=== PATIENT | female | born 1940 | race Caucasian/White ===

== ENCOUNTER 2017-12-04 07:35 | Emergency (ER) | payer MEDICARE, MEDICAID ==
--- NOTE | 2017-12-04 07:59 | ER Document Report ---
ED General - General Chief Complaint: Inability to Void Stated Complaint: URINARY PROBLEMS Time Seen by Provider: 12/04/17 07:49 Notes: 77 years old female with a history of COPD, presents with unable to urinate for 4 days with dribbling. And lower abdominal discomfort and swelling. Denies any fever chills, denies any dysuria. Denies any constipation. Denies any other constitutional symptoms. She continuously smoked and cough on and off. TRAVEL OUTSIDE OF THE [place] IN LAST 30 DAYS: No - HPI Onset: Other - 4 days Onset/Duration: Gradual Quality of pain: Throbbing Severity: Moderate Pain Level: 4 Associated symptoms: Productive cough, Shortness of breath. denies: None, Allergy/hay fever, Body/muscle aches, Chest pain, Chills, Nonproductive cough, Diarrhea, Drooling, Earache, Fever, Headache, Hoarseness, Hurts to breath, Leg swelling, Nausea, Vomiting, Rhinnorhea, Sinus pain/drainage, Slow to respond, Sore throat, Sweating, Weakness, Other Exacerbated by: denies: Denies, Supine, Sitting, Standing, Movement, Walking, Coughing, Deep breathing, Food, Other Relieved by: denies: Denies, Supine, Sitting, Standing, Remaining still, Antacids, Food, Other - Related Data Allergies/Adverse Reactions: ciprofloxacin [From Cipro] Allergy (Intermediate, Verified 03/23/16 12:20) Hives ciprofloxacin HCl [From Cipro] Allergy (Intermediate, Verified 03/23/16 12:20) Hives nitroglycerin [From Nitrostat IV] Allergy (Verified 03/23/16 12:20) Penicillins Allergy (Verified 03/23/16 12:20) promethazine HCl [From Phenergan] Allergy (Verified 03/23/16 12:20) Past Medical History - General Information source: Patient - Social History Smoking Status: Current Every Day Smoker Cigarette use (# per day): Yes - 1 pack Chew tobacco use (# tins/day): No Smoking Education Provided: Yes Frequency of alcohol use: Rare Drug Abuse: None Lives with: Family Family History: Reviewed & Not Pertinent - Past Medical History Cardiac Medical History: Reports: Hx Hypercholesterolemia, Hx Hypertension Denies: Hx Heart Attack Pulmonary Medical History: Reports: Hx Asthma, Hx COPD Neurological Medical History: Reports: Hx Cerebrovascular Accident - x3, Hx Seizures - LAST 1 MONTH AGO Endocrine Medical History: Reports: Hx Diabetes Mellitus Type 2 GI Medical History: Denies: Hx Hepatitis, Hx Hiatal Hernia, Hx Ulcer Psychiatric Medical History: Denies: Hx Depression Infectious Medical History: Denies: Hx Hepatitis Past Surgical History: Reports: Hx Cardiac Catheterization - x3, Hx Cholecystectomy, Hx Hysterectomy - Full, Hx Kidney (Renal Surgery) - Bladder lift. Denies: Hx Mastectomy, Hx Open Heart Surgery, Hx Pacemaker - Immunizations Hx Diphtheria, Pertussis, Tetanus Vaccination: Yes Hx Pneumococcal Vaccination: 10/08/08 Review of Systems - Review of Systems Constitutional: denies: No symptoms reported, See HPI, Chills, Diaphoresis, Fever, Malaise, Weakness, Other, Weight gain, Weight loss, Recent illness EENT: denies: No symptoms reported, See HPI, Eye pain, Eye discharge, Blurred vision, Tearing, Double vision, Ear pain, Ear discharge, Nose pain, Nose congestion, Nose discharge, Sinus pressure, Sinus discharge, Throat pain, Difficulty swallowing, Throat swelling, Mouth pain, Mouth swelling, Dental problem, Vertigo, Other Cardiovascular: denies: No symptoms reported, See HPI, Chest pain, Palpitations , Heart racing, Orthopnea, Dyspnea, Syncope, Dizziness, Lightheaded, Edema, Other, Paroxysmal Nocturnal Dysp Respiratory: Cough, Short of breath, Wheezing. denies: No symptoms reported, See HPI, Hurts to breathe, Hemoptysis, Sputum, Stridor, Other Gastrointestinal: denies: No symptoms reported, See HPI, Abdomen distended, Abdominal pain, Diarrhea, Nausea, Vomiting, Constipation, Blood streaked bowels , Poor appetite, Poor fluid intake, Blood in vomit, Black stools, Rectal bleeding, Last bowel movement, Fecal incontinence, Other Genitourinary: See HPI Female Genitourinary: See HPI Skin: denies: No symptoms reported, See HPI, Change in color, Change in hair/ nails, Dryness, Lesions, Lumps, Rash, Other Hematologic/Lymphatic: denies: No symptoms reported, See HPI, Anemia, Blood clots, Easy bleeding, Easy bruising, Enlarged lymph nodes, Swollen glands, Other Physical Exam - Vital signs Vitals: Temp Pulse Resp BP Pulse Ox 97.8 F 81 20 95/72 L 98 12/04/17 07:43 12/04/17 07:43 12/04/17 07:43 12/04/17 07:43 12/04/17 07:43 - Notes Notes: PHYSICAL EXAMINATION: GENERAL: Cachexia of COPD, small made HEAD: Atraumatic, normocephalic. EYES: Pupils equal round and reactive to light, extraocular movements intact, conjunctiva are normal. ENT: Nares patent, oropharynx clear without exudates. Moist mucous membranes. NECK: Normal range of motion, supple without lymphadenopathy LUNGS: Bilaterally expiratory crackles were heard throughout the lung field HEART: Regular rate and rhythm without murmurs ABDOMEN: Lower abdomen over the suprapubic region is distended tense and tender. Otherwise positive bowel sounds Female : deferred Musculoskeletal: Normal range of motion, no pitting or edema. No cyanosis. NEUROLOGICAL: Cranial nerves grossly intact. Normal speech, normal gait. Normal sensory, motor exams PSYCH: Normal mood, normal affect. SKIN: Warm, Dry, normal turgor, no rashes or lesions noted. Course - Re-evaluation Re-evalutation: 12/04/17 09:10 Strep test and flu test came back negative urine was positive for UTI 12/04/17 12:09 CT report was reviewed, offered soapsuds edema patient refused. Subsequently discharged home. - Vital Signs Vital signs: Temp Pulse Resp BP Pulse Ox 97.8 F 81 20 95/72 L 98 12/04/17 07:43 12/04/17 07:43 12/04/17 07:43 12/04/17 07:43 12/04/17 07:43 - Laboratory Result Diagrams: 12/04/17 08:45 12/04/17 08:45 Laboratory results interpreted by me: 12/04/17 12/04/17 08:15 08:45 WBC 10.9 H RBC 3.66 L Hgb 11.5 L Hct 34.8 L Absolute Neutrophils 8.5 H Urine Protein 100 H Urine Blood MODERATE H Ur Leukocyte Esterase LARGE H - Diagnostic Test Radiology reviewed: Reports reviewed Radiology results interpreted by me: 12/04/17 12:08 CT of the abdomen was reported by radiologist as large amount of fecal material Discharge - Discharge Clinical Impression: Constipation by delayed colonic transit Fever Qualifiers: Fever type: unspecified Qualified Code(s): R50.9 - Fever, unspecified Urinary tract infection Qualifiers: Urinary tract infection type: acute cystitis Hematuria presence: without hematuria Qualified Code(s): N30.00 - Acute cystitis without hematuria Condition: Fair Disposition: HOME, SELF-CARE Instructions: Urinary Tract Infection ([facility]), Constipation ([facility]) Prescriptions: Lactulose 20 gm PO BID #240 ml Sulfamethoxazole/Trimethoprim [Bactrim Ds Tablet] 1 each PO BID #20 tablet
[2017-12-04 08:47] LABS: APPEARANCE,URINE TURBID; BILIRUBIN,URINE NEGATIVE (NEGATIVE); COLOR,URINE YELLOW; GLUCOSE, URINE NEGATIVE (NEGATIVE); KETONES,URINE NEGATIVE (NEGATIVE); LEUKOCYTE ESTERASE,URINE LARGE (NEGATIVE); NITRITE,URINE NEGATIVE (NEGATIVE); PROTEIN,URINE 100 mg/dL (NEGATIVE); URINE SPECIFIC GRAVITY 1.015; UROBILINOGEN,URINE NEGATIVE mg/dL (<2.0)
[2017-12-04] MEDS ORDERED: SULFAMETHOXAZOLE/TRIMETHOPRIM 800-160 MG TABLET PO ONE (09:09)
[2017-12-04 09:29] LABS: ABSOLUTE EOSINOPHILS # (AUTO) 0.1 10^3/uL (0.0-0.6); ABSOLUTE LYMPHOCYTES (AUTO) 1.6 10^3/uL (0.5-4.7); ABSOLUTE MONOCYTES (AUTO) 0.7 10^3/uL (0.1-1.4); ABSOLUTE NEUT (AUTO) 8.5 10^3/uL (1.7-8.2); BASOPHILS % (AUTO) 0.4 % (0-2); EOSINOPHILS % (AUTO) 0.8 % (0-6); HEMATOCRIT 34.8 % (36.0-47.0); HEMOGLOBIN 11.5 g/dL (12.0-15.5); LYMPHOCYTES % (AUTO) 14.8 % (13-45); MEAN CORPUSCULAR HEMOGLOBIN 31.4 pg (27.0-33.4); MEAN CORPUSCULAR VOLUME 95 fl (80-97); MONOCYTES % (AUTO) 6.7 % (3-13); PLATELET COUNT 303 10^3/uL (150-450); RED BLOOD COUNT 3.66 10^6/uL (3.72-5.28); SEGMENTED NEUTROPHILS % (AUTO) 77.3 % (42-78); TOTAL CELLS COUNTED % (AUTO) 100 %; WHITE BLOOD COUNT 10.9 10^3/uL (4.0-10.5)
[2017-12-04 09:44] LABS: BLOOD UREA NITROGEN 15 mg/dL (7-20); CALCIUM 9.7 mg/dL (8.4-10.2); GLUCOSE 84 mg/dL (75-110)
[2017-12-04 09:45] LABS: ALANINE AMINOTRANSFERASE 26 U/L (9-52); ALBUMIN 3.8 g/dL (3.5-5.0); ALKALINE PHOSPHATASE 90 U/L (38-126); ANION GAP 11 (5-19); ASPARTATE AMINO TRANSFERASE 16 U/L (14-36); BILIRUBIN,DIRECT 0.3 mg/dL (0.0-0.4); BILIRUBIN,TOTAL 0.3 mg/dL (0.2-1.3); CARBON DIOXIDE 23 mmol/L (22-30); CHLORIDE 105 mmol/L (98-107); POTASSIUM 4.4 mmol/L (3.6-5.0); SODIUM 138.9 mmol/L (137-145); TOTAL PROTEIN 6.6 g/dL (6.3-8.2)
--- NOTE | 2017-12-04 11:15 | RADIOLOGY REPORT (SQ) ---
EXAM DESCRIPTION: CT ABD/PELVIS WITH IV ONLY COMPLETED DATE/TIME: 12/04/2017 10:46 am REASON FOR STUDY: Abdominal mass COMPARISON: CT abdomen pelvis 05/06/2016, 03/07/2012 CT angio chest 04/17/2009 TECHNIQUE: CT scan of the abdomen and pelvis performed using helical scanning technique with dynamic intravenous contrast injection. No oral contrast. Images reviewed with lung, soft tissue, and bone windows. Reconstructed coronal and sagittal MPR images reviewed. Delayed images for evaluation of the urinary system also acquired. All images stored on PACS. All CT scanners at this facility use dose modulation, iterative reconstruction, and/or weight based d osing when appropriate to reduce radiation dose to as low as reasonably achievable (ALARA). [facility]: Dose Right [facility]: CareDose [facility]: Dose Right [facility]: Teradose 4D [facility]: OrangeSoda CONTRAST TYPE AND DOSE: contrast/concentration: Isovue 370.00 mg/ml; Total Contrast Delivered: 42.0 ml; Total Saline Delivered: 39.0 ml RENAL FUNCTION: Creatinine 0.83 RADIATION DOSE: CT Rad equipment meets quality standard of care and radiation dose reduction techniq ues were employed. CTDIvol: 4.8 mGy. DLP: 459 mGy-cm.. LIMITATIONS: No oral contrast FINDINGS: LOWER CHEST: Chronic left lower lobe collapse with rounded atelectasis, similar compared t o 05/06/2015 CT exam LIVER: Very mild intrahepatic biliary ductal prominence similar compared to 2016. Small hemangioma p osterior right lobe liver 1 cm in size axial image 17. No worrisome liver masses. Normal enhancemen t of the portal vein and hepatic veins. SPLEEN: Normal size. No focal lesions. PANCREAS: No masses. No significant calcifications. No adjacent inflammation or peripancreatic fluid collections. Pancreatic duct not dilated. Small periampullary duodenum diverticulum GALLBLADDER: Surgically absent ADRENAL GLANDS: No significant masses or asymmetry. RIGHT KIDNEY AND URETER: No solid masses. 1.6 cm right lower pole renal cortical cyst. No significa nt calcifications. No hydronephrosis or hydroureter. LEFT KIDNEY AND URETER: No solid masses. 3 cm left upper pole renal cortical cyst. No significant c alcifications. No hydronephrosis or hydroureter. AORTA AND VESSELS: No abdominal aortic aneurysm. Very heavy visceral artery calcification along the proximal celiac artery, SMA, and bilateral renal arteries. Very heavy atherosclerotic iliac bifurcat ion calcification with at least moderate stenosis of the proximal common iliac arteries bilaterally RETROPERITONEUM: No retroperitoneal adenopathy, hemorrhage or masses. BOWEL AND PERITONEAL CAVITY: Large amount of stool throughout the colon particularly the right colon. No CT evidence of bowel obstruction. APPENDIX: Surgically absent PELVIS: Estrada catheter drains the bladder. Post hysterectomy. No free pelvic fluid. No adenopathy ABDOMINAL WALL: No masses. No hernias. BONES: Chronic appearing vertebra plana deformity T12 without bone cement, L1 with bone cement. OTHER: No other significant finding. IMPRESSION: Huge amount of stool throughout the colon TECHNICAL DOCUMENTATION: JOB ID: [id number] Quality ID # [id number]: Final reports with documentation of one or more dose reduction techniques (e.g., Au tomated exposure control, adjustment of the mA and/or kV according to patient size, use of iterative reconstruction technique) 2010 [employer]- All Rights Reserved Reading location - IP/workstation name: [email or web address]
[2017-12-04 12:29] VITALS: BP 111/54
== END 2017-12-04 12:29 | disposition home or self-care (01) ==
LOC: ER 07:35
DX: K59.01 Slow transit constipation (principal); N30.00 Acute cystitis without hematuria; R50.9 Fever, unspecified; J44.9 Chronic obstructive pulmonary disease, unspecified; F17.210 Nicotine dependence, cigarettes, uncomplicated; R05 Cough; I10 Essential (primary) hypertension; E11.9 Type 2 diabetes mellitus without complications
CPT/HCPCS: 99284; 51702; 36415; 85025; 80053; 81001; 74177; A9270

== ENCOUNTER 2018-05-11 19:50 | Inpatient (IN) | payer MEDICARE, MEDICAID ==
--- NOTE | 2018-05-11 19:59 | ER Document Report ---
ED Respiratory Problem - General Mode of Arrival: Ambulatory Information source: Patient TRAVEL OUTSIDE OF THE [place] IN LAST 30 DAYS: No <SARAH SINGH - Last Filed: 05/11/18 19:59> <WILLIAM TREVINO - Last Filed: 05/12/18 03:00> - General Stated Complaint: DIFFICULTY BREATHING Notes: Patient is a 78 year old female that presents to the emergency department today with complaints of respiratory distress. EMS reports when they arrived on scene the patient had an oxygen saturation at 88% on her chronic 2L of home oxygen. EMS reports the patient was "breathing very shallow as if she could not get a deep breath". Patient states she used 5 nebulizers today, which is the same number that she uses every day. Patient states she has had increased shortness of breath for the last four days. Patient complaints of a subjective fever but denies any recent antibiotic usage. (SARAH SINGH) - Related Data Allergies/Adverse Reactions: ciprofloxacin [From Cipro] Allergy (Intermediate, Verified 05/11/18 20:50) Hives ciprofloxacin HCl [From Cipro] Allergy (Intermediate, Verified 05/11/18 20:50) Hives nitroglycerin [From Nitrostat IV] Allergy (Verified 05/11/18 20:50) Penicillins Allergy (Verified 05/11/18 20:50) promethazine HCl [From Phenergan] Allergy (Verified 05/11/18 20:50) Past Medical History - General Information source: Patient - Social History Smoking Status: Never Smoker Cigarette use (# per day): No Frequency of alcohol use: None Drug Abuse: None Lives with: Family Family History: Reviewed & Not Pertinent - Past Medical History Cardiac Medical History: Reports: Hx Hypercholesterolemia, Hx Hypertension Pulmonary Medical History: Reports: Hx Asthma, Hx COPD Neurological Medical History: Reports: Hx Cerebrovascular Accident - x3, Hx Seizures - LAST 1 MONTH AGO Endocrine Medical History: Reports: Hx Diabetes Mellitus Type 2 Past Surgical History: Reports: Hx Cardiac Catheterization - x3, Hx Cholecystectomy, Hx Hysterectomy - Full, Hx Kidney (Renal Surgery) - Bladder lift - Immunizations Hx Diphtheria, Pertussis, Tetanus Vaccination: Yes Hx Pneumococcal Vaccination: 10/08/08 <SARAH SINGH - Last Filed: 05/11/18 19:59> Review of Systems - Review of Systems Constitutional: See HPI, Fever, Other - denies re EENT: No symptoms reported Cardiovascular: No symptoms reported Respiratory: See HPI, Short of breath Gastrointestinal: No symptoms reported Genitourinary: No symptoms reported Female Genitourinary: No symptoms reported Musculoskeletal: No symptoms reported Skin: No symptoms reported Hematologic/Lymphatic: No symptoms reported Neurological/Psychological: No symptoms reported -: Yes All other systems reviewed and negative <SARAH SINGH - Last Filed: 05/11/18 19:59> Physical Exam <SARAH SINGH - Last Filed: 05/11/18 19:59> <WILLIAM TREVINO - Last Filed: 05/12/18 03:00> - Vital signs Vitals: Temp Resp BP Pulse Ox 97.8 F 20 129/81 H 97 05/11/18 19:54 05/11/18 19:54 05/11/18 19:54 05/11/18 19:54 - Notes Notes: Physical Exam: General: Alert, cachectic. HEENT: Normocephalic. Atraumatic. PERRL. Extraocular movements intact. Oropharynx clear. Neck: Supple. Non-tender. Respiratory: Tachypneic. Clear and equal breath sounds bilaterally. Cardiovascular: Tachycardic, regular rhythm. Abdominal: Normal Inspection. Non-tender. No distension. Normal Bowel Sounds. Back: Non-tender. No deformity or step off. Extremities: Moves all four extremities. Upper extremities: Normal inspection. Normal ROM. Lower extremities: Normal inspection. No edema. Normal ROM. Neurological: Normal cognition. AAOx4. Normal speech. Psychological: Normal affect. Normal Mood. Skin: Warm. Dry. Noriega color. (SARAH SINGH) Course - Laboratory Result Diagrams: 05/11/18 19:17 05/11/18 19:17 <SARAH SINGH - Last Filed: 05/11/18 19:59> - Laboratory Result Diagrams: 05/11/18 19:17 05/11/18 19:17 <WILLIAM TREVINO - Last Filed: 05/12/18 03:00> - Re-evaluation Re-evalutation: Patient is a 70-year-old female with history of COPD who comes in with difficulty breathing. Patient also has chronic collapse of her left lower lobe of her lung. Patient was still in respiratory distress despite multiple nebulizer treatments, Solu-Medrol, and magnesium from EMS. BiPAP was initiated which patient tolerated and greatly improved her work of breathing. She is usually on 2.5 L nasal cannula at home. At baseline she uses 4-5 nebulizers per day. Patient began having worsening symptoms on Sunday and has progressed since then. Given the severity of presentation and that she has not been able to manage as well at home, patient will be admitted for further evaluation and management of this current COPD exacerbation. She is agreeable to this plan. Discussed with the hospitalist service will accept for admission. (WILLIAM TREVINO) - Vital Signs Vital signs: Temp Pulse Resp BP Pulse Ox 98.0 F 92 30 H 119/70 99 05/12/18 00:32 05/12/18 02:00 05/12/18 01:44 05/12/18 00:32 05/12/18 01:44 - Laboratory Laboratory results interpreted by me: 05/11/18 05/11/18 05/11/18 19:17 19:17 20:12 RDW 14.5 H Monocytes % 17.7 H VBG HCO3 19.7 L Sodium 133.7 L Chloride 97 L Carbon Dioxide 21 L Total Protein 8.4 H Critical Care Note - Critical Care Note Total time excluding time spent on procedures (mins): 45 - Evaluation and management of respiratory distress, multiple re-evaluations, initiation of BiPAP , coordination of admission, counseling of patient <WILLIAM TREVINO - Last Filed: 05/12/18 03:00> Discharge <SARAH SINGH - Last Filed: 05/11/18 19:59> - Discharge Admitting Provider: [place] [facility] Unit Admitted: [facility] <WILLIAM TREVINO - Last Filed: 05/12/18 03:00> - Discharge Clinical Impression: COPD exacerbation, Respiratory distress, Acute on chronic respiratory failure with hypoxemia Condition: Stable Disposition: ADMITTED INPATIENT Scribe Attestation: 05/12/18 02:59 I personally performed the services described in the documentation, reviewed and edited the documentation which was dictated to the scribe in my presence, and it accurately records my words and actions. (WILLIAM TREVINO) Scribe Documentation - Scribe Written by Scribe:: Gianni Holliday, 2043 05/11/2018 acting as scribe for :: Marquis <SARAH SINGH - Last Filed: 05/11/18 19:59>
[2018-05-11 20:12] LABS: ABSOLUTE BASOPHILS # (AUTO) 0.1 10^3/uL (0.0-0.2); ABSOLUTE LYMPHOCYTES (AUTO) 0.9 10^3/uL (0.5-4.7); ABSOLUTE MONOCYTES (AUTO) 0.8 10^3/uL (0.1-1.4); ABSOLUTE NEUT (AUTO) 2.9 10^3/uL (1.7-8.2); BASOPHILS % (AUTO) 1.1 % (0-2); EOSINOPHILS % (AUTO) 0.4 % (0-6); HEMATOCRIT 36.4 % (36.0-47.0); HEMOGLOBIN 12.1 g/dL (12.0-15.5); LYMPHOCYTES % (AUTO) 19.5 % (13-45); MEAN CORPUSCULAR HEMOGLOBIN 31.3 pg (27.0-33.4); MEAN CORPUSCULAR HGB CONC 33.3 g/dL (32.0-36.0); MEAN CORPUSCULAR VOLUME 94 fl (80-97); MONOCYTES % (AUTO) 17.7 % (3-13); PLATELET COUNT 256 10^3/uL (150-450); RED BLOOD COUNT 3.87 10^6/uL (3.72-5.28); RED CELL DISTRIBUTION WIDTH 14.5 % (11.5-14.0); SEGMENTED NEUTROPHILS % (AUTO) 61.3 % (42-78); TOTAL CELLS COUNTED % (AUTO) 100 %; WHITE BLOOD COUNT 4.7 10^3/uL (4.0-10.5)
--- NOTE | 2018-05-11 20:13 | RADIOLOGY REPORT (SQ) ---
EXAM DESCRIPTION: CHEST SINGLE VIEW COMPLETED DATE/TIME: 05/11/2018 8:05 pm REASON FOR STUDY: SOB COMPARISON: CT chest 10/15/2015 CT abdomen pelvis 12/04/2017 EXAM PARAMETERS: NUMBER OF VIEWS: One view. TECHNIQUE: Single frontal radiographic view of the chest acquired. RADIATION DOSE: NA LIMITATIONS: None. FINDINGS: LUNGS AND PLEURA: Chronic appearing collapse left lower lobe. CT chest with IV contrast r ecommended for follow-up, to exclude endobronchial mass or left hilar mass. Remainder of the lungs are grossly clear. No pleural effusion or pneumothorax. MEDIASTINUM AND HILAR STRUCTURES: No masses. Contour normal. HEART AND VASCULAR STRUCTURES: No cardiomegaly BONES: Lower thoracic kyphoplasty HARDWARE: None in the chest. OTHER: No other significant finding. IMPRESSION: Chronic appearing left lower lobe collapse. CT chest with IV contrast recommended to ev aluate for left hilar or endobronchial mass TECHNICAL DOCUMENTATION: JOB ID: [id number] [employer]- All Rights Reserved Reading location - IP/workstation name: [email or web address]
[2018-05-11 20:25] LABS: INTERNATIONAL RATION (INR) 0.87; PROTHROMBIN TIME 12.3 SEC (11.4-15.4)
[2018-05-11 20:26] LABS: ALANINE AMINOTRANSFERASE 18 U/L (9-52); ALBUMIN 4.5 g/dL (3.5-5.0); ALKALINE PHOSPHATASE 121 U/L (38-126); ANION GAP 16 (5-19); ASPARTATE AMINO TRANSFERASE 36 U/L (14-36); BILIRUBIN,DIRECT 0.4 mg/dL (0.0-0.4); BILIRUBIN,TOTAL 0.4 mg/dL (0.2-1.3); BLOOD UREA NITROGEN 13 mg/dL (7-20); CALCIUM 9.4 mg/dL (8.4-10.2); CARBON DIOXIDE 21 mmol/L (22-30); CHLORIDE 97 mmol/L (98-107); GLUCOSE 87 mg/dL (75-110); POTASSIUM 4.5 mmol/L (3.6-5.0); SODIUM 133.7 mmol/L (137-145); TOTAL PROTEIN 8.4 g/dL (6.3-8.2)
[2018-05-11 20:36] LABS: VENOUS BLOOD BASE EXCESS -5.7 mmol/L; VENOUS BLOOD HCO3 19.7 mmol/L (20-32); VENOUS BLOOD PCO2 38.4 mmHg (35-63); VENOUS BLOOD PH 7.33 (7.30-7.42)
[2018-05-11] MEDS ORDERED: AZITHROMYCIN INJ 500 MG VIAL IV ONE (21:04)
[2018-05-11] MEDS ORDERED: LEVALBUTEROL HCL NEB 0.63 MG/3 ML AMPUL NEB PRN (22:21)
[2018-05-11] MEDS ORDERED: ONDANSETRON 4 MG TAB.RAPDIS PO PRN (22:21)
[2018-05-11 23:36] LABS: INTERNATIONAL RATION (INR) 0.89; PROTHROMBIN TIME 12.5 SEC (11.4-15.4)
[2018-05-11] MEDS ORDERED: METHYLPREDNISOLONE INJ 125 MG/2 ML SDV IV SCH (23:45)
[2018-05-11] MEDS ORDERED: INSULIN LISPRO 100 UNIT/ML 3 ML VIAL SUBCUT PRN (23:45)
[2018-05-11] MEDS ORDERED: GLUCAGON,HUMAN RECOMB 1 MG INJ IM PRN (23:45)
[2018-05-11] MEDS ORDERED: DEXTROSE 40% GEL 15 GM TUBE PO PRN ×2 (23:45)
[2018-05-11] MEDS ORDERED: DEXTROSE 50%-WATER 25 GM/50 ML DISP.SYRIN IV PRN ×2 (23:45)
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
[2018-05-12 00:03] LABS: CREATINE KINASE MB 0.88 ng/mL (<4.55)
[2018-05-12 00:04] LABS: TROPONIN I < 0.012 ng/mL
[2018-05-12] MEDS ORDERED: HYDROCODONE/ACETAMINOPHEN 7.5-325 MG TABLET PO PRN (00:11)
[2018-05-12] MEDS ORDERED: PHENYTOIN SODIUM EXTENDED 100 MG CAPSULE PO ONE (00:30)
[2018-05-12] MEDS ORDERED: TOPIRAMATE 25 MG TABLET PO ONE (00:30)
[2018-05-12] MEDS: NORMAL SALINE 1000 ML 1,000 ML IV PRN ×3 (01:27→21:55)
[2018-05-12] MEDS: IPRATROPIUM/ALBUTEROL 0.5-2.5 MG/3 ML AMPUL NEB SCH ×4 (01:38→20:19)
--- NOTE | 2018-05-12 03:47 | RADIOLOGY REPORT (SQ) ---
EXAM DESCRIPTION: CT CHEST WITH IV CONTRAST COMPLETED DATE/TME: 05/12/2018 00:00 CLINICAL HISTORY: 78 years Female, left lung lesion eval Comparison: 1.8.16 Technique: IV contrast. Coronal and sagittal reformat. This exam was performed according to our departmental dose-optimization program, which includes automated exposure control, adjustment of the mA and/or kV according to patient size and/or use of iterative reconstruction technique. [facility]: Dose Right [facility]: CareDose [facility]: Dose Right [facility]: Teradose 4D [facility]: [employer] LIMITATIONS: None Findings: Emphysematous hyperinflation large colonic stool retention of the visualized transverse colon. Atherosclerosis. Likely benign 3.3 cm exophytic left upper renal cyst. Moderate coronary artery calcification, moderate consolidative collection/collapse measuring 4.8 x 4.4 cm of the left lower lobe, moderate L1 compression deformity with vertebroplasty, moderate-severe T12 and T8 compression deformity, and mild T10 compression deformity without significant interval change compared to prior exam, October 15, 2015. Moderate leftward mediastinal shift. Inferior neck, axillae, mediastinum, airway, lymphatics, heart, vasculature, upper abdomen, and musculoskeleton appear otherwise unremarkable. Impression: Chronic left lower lobar consolidative collection/collapse without suspicious interval change compared with prior CT from October 2015. Differential etiologies include infectious, inflammatory, and neoplastic processes. Severe emphysematous hyperinflation, right more than left.
[2018-05-12 04:59] LABS: HEMATOCRIT 35.6 % (36.0-47.0); MEAN CORPUSCULAR HEMOGLOBIN 31.5 pg (27.0-33.4); MEAN CORPUSCULAR HGB CONC 33.6 g/dL (32.0-36.0); MEAN CORPUSCULAR VOLUME 94 fl (80-97); PLATELET COUNT 203 10^3/uL (150-450); RED BLOOD COUNT 3.79 10^6/uL (3.72-5.28); RED CELL DISTRIBUTION WIDTH 14.2 % (11.5-14.0); WHITE BLOOD COUNT 3.1 10^3/uL (4.0-10.5)
[2018-05-12] MEDS: LANSOPRAZOLE 30 MG TAB.RAP.DR PO SCH ×2 (05:08→17:56)
[2018-05-12 05:31] LABS: ANION GAP 15 (5-19); BLOOD UREA NITROGEN 15 mg/dL (7-20); CALCIUM 8.9 mg/dL (8.4-10.2); CARBON DIOXIDE 20 mmol/L (22-30); CHLORIDE 99 mmol/L (98-107); CREATINE KINASE 111 U/L (30-135); GLUCOSE 109 mg/dL (75-110); POTASSIUM 4.4 mmol/L (3.6-5.0); SODIUM 134.2 mmol/L (137-145)
[2018-05-12 05:36] LABS: CREATINE KINASE MB 1.07 ng/mL (<4.55)
[2018-05-12 05:39] LABS: TROPONIN I < 0.012 ng/mL
[2018-05-12 05:44] LABS: APPEARANCE,URINE SLIGHTLY-CLOUDY; BILIRUBIN,URINE NEGATIVE (NEGATIVE); COLOR,URINE YELLOW; GLUCOSE, URINE NEGATIVE (NEGATIVE); KETONES,URINE 20 mg/dL (NEGATIVE); LEUKOCYTE ESTERASE,URINE NEGATIVE (NEGATIVE); NITRITE,URINE NEGATIVE (NEGATIVE); PROTEIN,URINE NEGATIVE (NEGATIVE); URINE SPECIFIC GRAVITY 1.033; UROBILINOGEN,URINE NEGATIVE mg/dL (<2.0)
--- NOTE | 2018-05-12 09:57 | EKG REPORT ---
SEVERITY:- ABNORMAL ECG - SINUS TACHYCARDIA MULTIPLE VENTRICULAR PREMATURE COMPLEXES INCOMPLETE RIGHT BUNDLE BRANCH BLOCK : Confirmed by: Samuel Montalvo 12-May-2018 09:56:56
[2018-05-12] MEDS: ROPINIROLE HCL 1 MG TABLET PO SCH ×2 (10:48→17:56)
[2018-05-12] MEDS: DOXYCYCLINE HYCLATE 100 MG TABLET PO SCH ×2 (10:48→21:40)
[2018-05-12] MEDS: CITALOPRAM HYDROBROMIDE 20 MG TABLET PO SCH (10:49)
[2018-05-12] MEDS: TOPIRAMATE 25 MG TABLET PO SCH ×2 (10:49→21:40)
[2018-05-12] MEDS: ASPIRIN 81 MG TABLET, CHEWABLE PO SCH (10:49)
[2018-05-12] MEDS: DOCUSATE SODIUM 100 MG CAPSULE PO SCH (10:49)
[2018-05-12 11:03] LABS: CREATINE KINASE MB 1.49 ng/mL (<4.55)
[2018-05-12 11:06] LABS: TROPONIN I < 0.012 ng/mL
--- NOTE | 2018-05-12 11:11 | PDOC PROGRESS REPORT ---
Subjective Progress Note for:: 05/12/18 Subjective:: patient is feeling better today she is tolerating diet and back on home O2 2 liters/min Reason For Visit: COPD WITH EXACERBATION,LEFT LUNG LESION,ABNORMAL Physical Exam Vital Signs: Temp Pulse Resp BP Pulse Ox 98.5 F 94 18 118/49 L 100 05/12/18 07:40 05/12/18 08:35 05/12/18 08:35 05/12/18 07:40 05/12/18 08:35 Intake & Output 05/11/18 05/12/18 05/13/18 06:59 06:59 06:59 Intake Total 0 Output Total 0 Balance 0 Weight 83 lb 12.41 oz General appearance: PRESENT: cooperative, thin. ABSENT: no acute distress Head exam: PRESENT: atraumatic, normocephalic Eye exam: PRESENT: EOMI, PERRLA. ABSENT: conjunctival injection Ear exam: ABSENT: bleeding, drainage Neck exam: ABSENT: JVD, meningismus, tenderness, thyromegaly Respiratory exam: PRESENT: wheezes. ABSENT: accessory muscle use Cardiovascular exam: PRESENT: RRR. ABSENT: diastolic murmur, rubs, systolic murmur Pulses: PRESENT: normal dorsalis pedis pul Vascular exam: PRESENT: normal capillary refill GI/Abdominal exam: PRESENT: normal bowel sounds, soft. ABSENT: distended, guarding, mass, organolmegaly, rebound, tenderness Neurological exam: PRESENT: alert, awake, oriented to person, oriented to place , oriented to time, oriented to situation, CN II-XII grossly intact. ABSENT: motor sensory deficit Results Laboratory Results: 05/12/18 04:34 05/12/18 04:34 05/11/18 05/12/18 05/12/18 23:08 04:34 04:34 WBC 3.1 L RBC 3.79 Hgb 12.0 Hct 35.6 L MCV 94 MCH 31.5 MCHC 33.6 RDW 14.2 H Plt Count 203 Sodium 134.2 L Potassium 4.4 Chloride 99 Carbon Dioxide 20 L Anion Gap 15 BUN 15 Creatinine 0.65 Est GFR ( Amer) > 60 Est GFR (Non-Af Amer) > 60 Glucose 109 Calcium 8.9 TSH 1.64 Urine Color Urine Appearance Urine pH Ur Specific [place] Urine Protein Urine Glucose (UA) Urine Ketones Urine Blood Urine Nitrite Ur Leukocyte Esterase Urine WBC (Auto) Urine RBC (Auto) 05/12/18 05:15 WBC RBC Hgb Hct MCV MCH MCHC RDW Plt Count Sodium Potassium Chloride Carbon Dioxide Anion Gap BUN Creatinine Est GFR ( Amer) Est GFR (Non-Af Amer) Glucose Calcium TSH Urine Color YELLOW Urine Appearance SLIGHTLY-CLOUDY Urine pH 5.0 Ur Specific [place] 1.033 Urine Protein NEGATIVE Urine Glucose (UA) NEGATIVE Urine Ketones 20 H Urine Blood SMALL H Urine Nitrite NEGATIVE Ur Leukocyte Esterase NEGATIVE Urine WBC (Auto) 2 Urine RBC (Auto) 6 05/11/18 05/11/18 05/12/18 23:08 23:08 04:34 Creatine Kinase 64 111 CK-MB (CK-2) 0.88 Troponin I < 0.012 05/12/18 04:34 Creatine Kinase CK-MB (CK-2) 1.07 Troponin I < 0.012 Impressions: Chest X-Ray 05/11/18 19:54 IMPRESSION: Chronic appearing left lower lobe collapse. CT chest with IV contrast recommended to evaluate for left hilar or endobronchial mass Assessment & Plan - Diagnosis (1) COPD exacerbation Is this a current diagnosis for this admission?: Yes Plan: she is off BiPAP and back to nasal cannula oxygen We will switch to p.o. prednisone Continue bronchodilator management (2) Acute on chronic respiratory failure with hypoxemia Is this a current diagnosis for this admission?: Yes Plan: Due to COPD exacerbation Currently back to her baseline of 2 L of oxygen via nasal cannula (3) Abnormal weight loss Is this a current diagnosis for this admission?: Yes Plan: CT of the chest did not show any progression of her chronic lung findings We will give nutrition supplements (4) Chronic constipation Is this a current diagnosis for this admission?: Yes (5) Chronic pain Is this a current diagnosis for this admission?: Yes (6) GERD (gastroesophageal reflux disease) Is this a current diagnosis for this admission?: Yes Plan: Continue PPI treatment (7) Hyperlipidemia Is this a current diagnosis for this admission?: Yes (8) Lesion of left lung Is this a current diagnosis for this admission?: Yes Plan: CT scan did not show any progression (9) Seizure disorder Is this a current diagnosis for this admission?: Yes Plan: Continue antiepileptic medication (10) Type 2 diabetes mellitus Is this a current diagnosis for this admission?: Yes Plan: Holding p.o. medications and continue insulin coverage (11) CAD (coronary artery disease) Is this a current diagnosis for this admission?: Yes Plan: Continue aspirin
[2018-05-12] MEDS ORDERED: PHENYTOIN SODIUM EXTENDED 100 MG CAPSULE PO SCH (22:00)
[2018-05-13] MEDS ORDERED: ONDANSETRON HCL 8 MG TABLET PO PRN
[2018-05-13] MEDS ORDERED: ONDANSETRON HCL INJ/PF 4 MG/2 ML SDV IV PRN
[2018-05-13] MEDS: IPRATROPIUM/ALBUTEROL 0.5-2.5 MG/3 ML AMPUL NEB SCH ×3 (01:37→14:05)
[2018-05-13 05:19] LABS: HEMATOCRIT 32.5 % (36.0-47.0); HEMOGLOBIN 11.1 g/dL (12.0-15.5); MEAN CORPUSCULAR HEMOGLOBIN 31.8 pg (27.0-33.4); MEAN CORPUSCULAR HGB CONC 34.2 g/dL (32.0-36.0); MEAN CORPUSCULAR VOLUME 93 fl (80-97); PLATELET COUNT 167 10^3/uL (150-450); RED BLOOD COUNT 3.49 10^6/uL (3.72-5.28); RED CELL DISTRIBUTION WIDTH 14.2 % (11.5-14.0); WHITE BLOOD COUNT 4.6 10^3/uL (4.0-10.5)
[2018-05-13 05:54] LABS: ANION GAP 10 (5-19); BLOOD UREA NITROGEN 12 mg/dL (7-20); CALCIUM 8.1 mg/dL (8.4-10.2); CARBON DIOXIDE 21 mmol/L (22-30); CHLORIDE 106 mmol/L (98-107); GLUCOSE 86 mg/dL (75-110); POTASSIUM 4.2 mmol/L (3.6-5.0); SODIUM 136.6 mmol/L (137-145)
[2018-05-13] MEDS: LANSOPRAZOLE 30 MG TAB.RAP.DR PO SCH (05:59)
[2018-05-13] MEDS: NORMAL SALINE 1000 ML 1,000 ML IV PRN (08:15)
[2018-05-13] MEDS ORDERED: PREDNISONE 20 MG TABLET PO SCH (10:00)
[2018-05-13] MEDS: CITALOPRAM HYDROBROMIDE 20 MG TABLET PO SCH (11:00)
[2018-05-13] MEDS: DOCUSATE SODIUM 100 MG CAPSULE PO SCH (11:01)
[2018-05-13] MEDS: ASPIRIN 81 MG TABLET, CHEWABLE PO SCH (11:01)
[2018-05-13] MEDS: DOXYCYCLINE HYCLATE 100 MG TABLET PO SCH (11:01)
[2018-05-13] MEDS: ROPINIROLE HCL 1 MG TABLET PO SCH (11:01)
[2018-05-13] MEDS: TOPIRAMATE 25 MG TABLET PO SCH (11:01)
--- NOTE | 2018-05-13 11:32 | PDOC DISCHARGE SUMMARY ---
General - Admit/Disc Date/PCP Admission Date/Primary Care Provider: 05/11/18 22:04 Discharge Date: 05/13/18 - Discharge Diagnosis (1) COPD exacerbation Is this a current diagnosis for this admission?: Yes (2) Acute on chronic respiratory failure with hypoxemia Is this a current diagnosis for this admission?: Yes (3) Abnormal weight loss Is this a current diagnosis for this admission?: Yes (4) Chronic constipation Is this a current diagnosis for this admission?: Yes (5) Chronic pain Is this a current diagnosis for this admission?: Yes (6) GERD (gastroesophageal reflux disease) Is this a current diagnosis for this admission?: Yes (7) Hyperlipidemia Is this a current diagnosis for this admission?: Yes (8) Lesion of left lung Is this a current diagnosis for this admission?: Yes (9) Seizure disorder Is this a current diagnosis for this admission?: Yes (10) Type 2 diabetes mellitus Is this a current diagnosis for this admission?: Yes (11) CAD (coronary artery disease) Is this a current diagnosis for this admission?: Yes - Additional Information Resuscitation Status: Full Code Discharge Diet: Cardiac, Diabetic Discharge Activity: Activity As Tolerated Prescriptions: Doxycycline Hyclate [Vibramycin 100 mg Tablet] 100 mg PO Q12 5 Days #10 tablet Ipratropium/Albuterol Sulfate [Duoneb 3 ml Ampul] 3 ml NEB Q6 PRN #30 vial.neb PRN Reason: Shortness Of Breath Prednisone 10 mg PO DAILY #30 tablet Home Medications: Albuterol Sulfate [Albuterol Sulfate 2.5mg/3 mL] 2.5 mg IH 5XD 05/12/18 Albuterol Sulfate [Ventolin HFA MDI 18 GM] 1 puff IH Q6HP PRN 05/12/18 Amitriptyline HCl [Elavil 100 mg Tablet] 200 mg PO QHS 05/12/18 Aspirin [Ecotrin 81 mg EC Tablet] 81 mg PO [id number] 05/12/18 Citalopram Hydrobromide [Celexa 20 mg Tablet] 40 mg PO DAILY 05/12/18 Diphenoxylate HCl/Atropine [Lomotil 2.5-0.025 mg Tablet] 2 tab PO DAILYP PRN 02/22 Docusate Sodium [Colace 100 mg Capsule] 100 mg PO DAILY 05/12/18 Fluticasone/Salmeterol [Advair 500-50 Diskus 14 Dose/Diskus] 1 puff IH Q12 05/12 Hydrocodone/Acetaminophen [Hydrocodone-Acetamin 7.5-325] 1 tab PO Q6HP PRN 05/12 Lovastatin 40 mg PO DAILY 05/12/18 Metformin HCl [Glucophage 500 mg Tablet] 500 mg PO BIDBS 05/12/18 Omeprazole 40 mg PO BID 05/12/18 Ondansetron [Zofran Odt] 8 mg PO Q8HP PRN 05/12/18 Phenytoin Sodium Extended [Dilantin 100 mg Capsule.er] 200 mg PO QHS 05/12/18 Ropinirole HCl [Requip] 0.5 mg PO BID 05/12/18 Tiotropium [place] [Spiriva Handihaler 5 Cap/Kit (18 Mcg/Cap)] 1 puff IH DAILY 05/12/18 Topiramate [Topamax] 50 mg PO Q12 05/12/18 Doxycycline Hyclate [Vibramycin 100 mg Tablet] 100 mg PO Q12 5 Days #10 tablet 05/13/18 Ipratropium/Albuterol Sulfate [Duoneb 3 ml Ampul] 3 ml NEB Q6 PRN #30 vial.neb 05/13/18 Prednisone 10 mg PO DAILY #30 tablet 05/13/18 History of Present Illness History of Present Illness: DANE HERNÁNDEZ is a 78 year old female With history of coronary artery disease and COPD who presents to the emergency room due to shortness of breath and desaturation. She has chronic respiratory failure with hypoxemia and she was on chronic 2 L of oxygen at home. She also has chronic left lower lung collapse which seems unchanged from prior CT in 2016 Hospital Course Hospital Course: Patient was initially started on BiPAP which later switched to nasal cannula and weaned down to 2 L as her home oxygen was. She was started on IV Solu- Medrol then transitioned to p.o. prednisone she tolerated that very well. She continued to receive albuterol and DuoNeb with great response. She felt that she is at her baseline and she wanted to go home. Patient is stable for discharge and we will give her prescription for tapering dose of steroids. She carries a long-term poor prognosis. She still smokes and we counseled her extensively regarding that. Physical Exam Vital Signs: Temp Pulse Resp BP Pulse Ox 99.2 F 95 18 112/52 L 98 05/13/18 07:25 05/13/18 08:23 05/13/18 08:23 05/13/18 07:25 05/13/18 08:23 Intake & Output 05/12/18 05/13/18 05/14/18 06:59 06:59 06:59 Intake Total 0 3172 1000 Output Total 0 Balance 0 3172 1000 Weight 83 lb 12.41 oz 144 lb 9.972 oz General appearance: PRESENT: cooperative, thin. ABSENT: no acute distress Head exam: PRESENT: atraumatic, normocephalic Eye exam: PRESENT: EOMI, PERRLA. ABSENT: conjunctival injection, nystagmus Ear exam: ABSENT: bleeding, drainage Respiratory exam: PRESENT: wheezes. ABSENT: accessory muscle use Cardiovascular exam: PRESENT: RRR. ABSENT: diastolic murmur, rubs, systolic murmur GI/Abdominal exam: PRESENT: normal bowel sounds, soft. ABSENT: distended, guarding, mass, organolmegaly, rebound, tenderness Neurological exam: PRESENT: alert, awake, oriented to person, oriented to place , oriented to time, oriented to situation, CN II-XII grossly intact. ABSENT: motor sensory deficit Results Laboratory Results: 05/13/18 04:22 05/13/18 04:22 05/13/18 05/13/18 04:22 04:22 WBC 4.6 RBC 3.49 L Hgb 11.1 L Hct 32.5 L MCV 93 MCH 31.8 MCHC 34.2 RDW 14.2 H Plt Count 167 Sodium 136.6 L Potassium 4.2 Chloride 106 Carbon Dioxide 21 L Anion Gap 10 BUN 12 Creatinine 0.61 Est GFR ( Amer) > 60 Est GFR (Non-Af Amer) > 60 Glucose 86 Calcium 8.1 L 05/11/18 05/11/18 05/12/18 23:08 23:08 04:34 Creatine Kinase 64 111 CK-MB (CK-2) 0.88 Troponin I < 0.012 05/12/18 05/12/18 05/12/18 04:34 10:23 10:23 Creatine Kinase 113 CK-MB (CK-2) 1.07 1.49 Troponin I < 0.012 < 0.012 Impressions: Chest X-Ray 05/11/18 19:54 IMPRESSION: Chronic appearing left lower lobe collapse. CT chest with IV contrast recommended to evaluate for left hilar or endobronchial mass Qualifiers - * PATIENT BEING DISCHARGED WITH ANY OF THE FOLLOWING DIAGNOSIS: No
[2018-05-13 11:48] VITALS: BP 123/59
== END 2018-05-13 15:30 | disposition home or self-care (01) | DRG 190 ==
LOC: ER 19:50 → EH 22:04 → 3N 05-12 00:32
PROVIDERS: ADMIT Internal Medicine; ATTEND Internal Medicine
PROC: 5A09457 Assistance with Respiratory Ventilation, 24-96 Consecutive Hours, Continuous Positive Airway Pressure (ICD-10-PCS; principal; 2018-05-11)
PROC: 3E0F73Z Introduction of Anti-inflammatory into Respiratory Tract, Via Natural or Artificial Opening (ICD-10-PCS; 2018-05-11)
DX: J44.1 Chronic obstructive pulmonary disease with (acute) exacerbation (principal); J96.21 Acute and chronic respiratory failure with hypoxia; Z68.1 Body mass index [BMI] 19.9 or less, adult; J96.11 Chronic respiratory failure with hypoxia; R91.1 Solitary pulmonary nodule; R63.4 Abnormal weight loss; K59.09 Other constipation; G89.29 Other chronic pain; K21.9 Gastro-esophageal reflux disease without esophagitis; E78.00 Pure hypercholesterolemia, unspecified; G40.909 Epilepsy, unspecified, not intractable, without status epilepticus; I25.10 Atherosclerotic heart disease of native coronary artery without angina pectoris; F17.210 Nicotine dependence, cigarettes, uncomplicated; E11.51 Type 2 diabetes mellitus with diabetic peripheral angiopathy without gangrene; K59.00 Constipation, unspecified; G25.81 Restless legs syndrome; T40.2X5A Adverse effect of other opioids, initial encounter; Z79.82 Long term (current) use of aspirin; Z79.52 Long term (current) use of systemic steroids; Z79.899 Other long term (current) drug therapy; Z99.81 Dependence on supplemental oxygen; Z90.49 Acquired absence of other specified parts of digestive tract; Z90.710 Acquired absence of both cervix and uterus; Z88.1 Allergy status to other antibiotic agents; Z88.0 Allergy status to penicillin; Z88.8 Allergy status to other drugs, medicaments and biological substances; Z86.73 Personal history of transient ischemic attack (TIA), and cerebral infarction without residual deficits
CPT/HCPCS: 36415; 71045; 71260; 80048; 80053; 81001; 82550; 82553; 82803; 82962; 83605; 84443; 84484; 85025; 85027; 85610; 85730; 87040; 87070; 87077; 87086; 87186; 87205; 93005; 93010; 94660; 99291; J0456; J2930; J3490; J7030; J7512; J7620; S0119

== ENCOUNTER 2018-05-30 19:03 | Inpatient (IN) | payer MEDICARE, MEDICAID ==
[2018-05-30 19:21] LABS: ABSOLUTE LYMPHOCYTES (AUTO) 0.8 10^3/uL (0.5-4.7); ABSOLUTE MONOCYTES (AUTO) 0.9 10^3/uL (0.1-1.4); ABSOLUTE NEUT (AUTO) 12.3 10^3/uL (1.7-8.2); BASOPHILS % (AUTO) 0.2 % (0-2); EOSINOPHILS % (AUTO) 0.1 % (0-6); HEMATOCRIT 34.5 % (36.0-47.0); HEMOGLOBIN 11.5 g/dL (12.0-15.5); LYMPHOCYTES % (AUTO) 5.5 % (13-45); MEAN CORPUSCULAR HEMOGLOBIN 31.2 pg (27.0-33.4); MEAN CORPUSCULAR HGB CONC 33.3 g/dL (32.0-36.0); MEAN CORPUSCULAR VOLUME 94 fl (80-97); MONOCYTES % (AUTO) 6.3 % (3-13); PLATELET COUNT 333 10^3/uL (150-450); RED BLOOD COUNT 3.69 10^6/uL (3.72-5.28); RED CELL DISTRIBUTION WIDTH 14.1 % (11.5-14.0); SEGMENTED NEUTROPHILS % (AUTO) 87.9 % (42-78); TOTAL CELLS COUNTED % (AUTO) 100 %
[2018-05-30] MEDS ORDERED: RINGERS SOLUTION,LACTATED 1,000 ML IV ONE (19:25)
[2018-05-30] MEDS ORDERED: LORAZEPAM INJ 2 MG/1 ML VIAL IV ONE (19:25)
[2018-05-30] MEDS ORDERED: CEFEPIME 2 GM/D5W RTU 2 GM/50 ML RTUPB IV ONE (19:25)
[2018-05-30] MEDS ORDERED: ALBUTEROL SULFATE 0.083% NEB 2.5 MG/3 ML AMPUL NEB ONE (19:25)
--- NOTE | 2018-05-30 19:25 | ER Document Report ---
ED General - General Chief Complaint: Respiratory Distress Stated Complaint: WEAKNESS Time Seen by Provider: 05/30/18 19:13 Cannot obtain history due to: Unstable vital signs Notes: Patient is a 78 year old female with a past medical history of COPD and hypertension, ongoing tobacco abuse, who presents by EMS in respiratory distress. History is somewhat limited secondary to the patient's degree of distress at time of presentation. EMS reports that patient stated for the past 2-3 days she has had progressively worsening shortness of breath became much worse over the past several hours. Patient normally uses 3 L of nasal cannula oxygen. When EMS arrived she was saturating 74% on 4 L by nasal cannula and rapidly desaturated into the 60s on room air during transition to the EMS stretcher. Patient reports that she has had cough and fever. She was febrile to 102.7 for EMS. History is otherwise limited secondary to the patient's degree of distress at time of presentation. TRAVEL OUTSIDE OF THE [place] IN LAST 30 DAYS: No - Related Data Allergies/Adverse Reactions: ciprofloxacin [From Cipro] Allergy (Intermediate, Verified 05/30/18 19:06) Hives ciprofloxacin HCl [From Cipro] Allergy (Intermediate, Verified 05/30/18 19:06) Hives nitroglycerin [From Nitrostat IV] Allergy (Verified 05/30/18 19:06) Penicillins Allergy (Verified 05/30/18 19:06) promethazine HCl [From Phenergan] Allergy (Verified 05/30/18 19:06) Past Medical History - General Information source: Patient, Emergency Med Personnel - Social History Smoking Status: Current Every Day Smoker Frequency of alcohol use: None Drug Abuse: None Lives with: Spouse/Significant other Family History: Reviewed & Not Pertinent - Past Medical History Cardiac Medical History: Reports: Hx Coronary Artery Disease, Hx Hypercholesterolemia, Hx Hypertension, Hx Peripheral Vascular Disease Denies: Hx Heart Attack Pulmonary Medical History: Reports: Hx Asthma, Hx Bronchitis, Hx COPD, Hx Respiratory Failure Neurological Medical History: Reports: Hx Cerebrovascular Accident - x3, Hx Seizures - LAST 1 MONTH AGO Endocrine Medical History: Reports: Hx Diabetes Mellitus Type 2 Renal/ Medical History: Denies: Hx Peritoneal Dialysis GI Medical History: Denies: Hx Hepatitis, Hx Hiatal Hernia, Hx Ulcer Musculoskeletal Medical History: Denies Hx Arthritis Skin Medical History: Denies Hx Eczema, Denies Hx Psoriasis Psychiatric Medical History: Denies: Hx Depression Infectious Medical History: Denies: Hx Hepatitis Past Surgical History: Reports: Hx Cardiac Catheterization - x3, Hx Cholecystectomy, Hx Hysterectomy - Full, Hx Kidney (Renal Surgery) - Bladder lift. Denies: Hx Mastectomy, Hx Open Heart Surgery, Hx Pacemaker - Immunizations Hx Diphtheria, Pertussis, Tetanus Vaccination: Yes Hx Pneumococcal Vaccination: 10/08/08 Review of Systems - Review of Systems Notes: Constitutional: Positive for fever. HENT: Negative for sore throat. Eyes: Negative for visual changes. Cardiovascular: Negative for chest pain. Respiratory: Positive for shortness of breath and cough Gastrointestinal: Negative for abdominal pain, vomiting or diarrhea. Genitourinary: Negative for dysuria. Musculoskeletal: Negative for back pain. Skin: Negative for rash. Neurological: Negative for headaches, weakness or numbness. 10 point ROS negative except as marked above and in HPI. Physical Exam - Vital signs Vitals: Pulse 117 H 05/30/18 19:05 Interpretation: Tachycardic, Hypoxic, Tachypneic Notes: PHYSICAL EXAMINATION: GENERAL: Frail, elderly, in moderate to severe respiratory distress HEAD: Atraumatic, normocephalic. EYES: Pupils equal round and reactive to light, extraocular movements intact, sclera anicteric, conjunctiva are normal. ENT: nares patent, oropharynx clear without exudates. Moderately dry mucous membranes. NECK: Normal range of motion, supple without lymphadenopathy LUNGS: Tachypneic, supraclavicular and intercostal retractions. Unable to speak in clear sentences secondary to dyspnea. Coarse air movement in all lung warner with scattered respiratory wheezing throughout. HEART: Regular tachycardia without murmurs ABDOMEN: Soft, nontender, normoactive bowel sounds. No guarding, no rebound. No masses appreciated. EXTREMITIES: Normal range of motion, no pitting or edema. No cyanosis. NEUROLOGICAL: No focal neurological deficits. Moves all extremities spontaneously and on command. PSYCH: Moderately anxious SKIN: Warm, Dry, normal turgor, no rashes or lesions noted. Course - Re-evaluation Re-evalutation: 05/30/18 19:10 Patient presents in moderate respiratory distress although notably improved per EMS report from their initial assessment. Patient was initially satting 76% on her normal 3 L by nasal cannula, rapidly desaturated into the 60s on room air for EMS. She has received to do nebulizers as well as 10 mg of albuterol prior to arrival as well as 2 g of magnesium, 125 mg of Solu-Medrol, 975 mg of Tylenol as she was febrile to 102F. On my assessment when the patient was transitioned off of continuous nebulizer therapy on 2 3 L by nasal cannula she immediately became quite tachypneic, again breathing almost 35 times per minute. She does have crackles in all lung warner, most dominant to the right lower lobe. Given her fever of 102F, tachypnea, cough with sputum production, increased hypoxia over baseline her presentation is clinically consistent with a an acute pneumonia with an associated COPD exacerbation and respiratory distress. The patient was unfortunately just hospitalized within the past 2 weeks for pneumonia also placing her at risk for hospital-acquired pneumonia. Will therefore broadly cover with cefepime, vancomycin, azithromycin, begin IV fluids, sent cultures, lactate, blood gas and reassess 05/30/18 20:28 Chest x-ray shows possible left lower lobe pneumonia, review of CT of the chest from the fifth reviews some degree of chronic changes to the area although during the hospitalization the patient did not have a fever or leukocytosis as she does today. Her work of breathing is much improved on BiPAP. Antibiotics, IV fluids are infusing. Will continue to reassess at regular intervals. 05/30/18 21:13 Patient continues to have much improved respiratory status at this point. Improved aeration all lung warner. Remains tachycardic however. Will discuss with the hospitalist for admission. - Vital Signs Vital signs: Temp Pulse Resp BP Pulse Ox 100.8 F H 117 H 20 99 05/30/18 19:30 05/30/18 19:05 05/31/18 00:59 05/31/18 00:59 - Laboratory Result Diagrams: 05/30/18 18:30 05/30/18 18:30 Laboratory results interpreted by me: 05/30/18 05/30/18 05/30/18 18:30 18:30 20:03 WBC 14.0 H RBC 3.69 L Hgb 11.5 L Hct 34.5 L RDW 14.1 H Seg Neutrophils % 87.9 H Lymphocytes % 5.5 L Absolute Neutrophils 12.3 H Sodium 133.1 L Chloride 95 L Glucose 132 H Lactic Acid 2.2 H Alkaline Phosphatase 127 H - Diagnostic Test Radiology reviewed: Image reviewed, Reports reviewed Radiology results interpreted by me: 05/30/18 21:13 Chest x-ray: Left lower lobe infiltrate Critical Care Note - Critical Care Note Total time excluding time spent on procedures (mins): 40 Comments: Critical care time spent obtaining history from patient or surrogate, discussions with consultants, development of treatment plan with patient or surrogate, evaluation of patient's response to treatment, examination of patient , ordering and performing treatments and interventions, ordering and review of laboratory studies, re-evaluation of patient's condition, ordering and review of radiographic studies and review of old charts Discharge - Discharge Clinical Impression: Respiratory distress, COPD exacerbation Sepsis Qualifiers: Sepsis type: sepsis due to unspecified organism Qualified Code(s): A41.9 - Sepsis, unspecified organism Left lower lobe pneumonia Qualifiers: Pneumonia type: due to unspecified organism Qualified Code(s): J18.1 - Lobar pneumonia, unspecified organism Condition: Fair Disposition: ADMITTED INPATIENT Admitting Provider: Hospitalist Unit Admitted: [facility]
[2018-05-30] MEDS ORDERED: VANCOMYCIN HCL INJ 1000 MG VIAL IV ONE (19:26)
[2018-05-30] MEDS ORDERED: AZITHROMYCIN 250 MG TABLET PO ONE (19:26)
[2018-05-30] MEDS ORDERED: LORAZEPAM INJ 2 MG/1 ML VIAL ONE (19:27)
[2018-05-30 19:38] LABS: ALANINE AMINOTRANSFERASE 25 U/L (9-52); ALBUMIN 3.5 g/dL (3.5-5.0); ALKALINE PHOSPHATASE 127 U/L (38-126); ANION GAP 14 (5-19); ASPARTATE AMINO TRANSFERASE 28 U/L (14-36); BILIRUBIN,DIRECT 0.4 mg/dL (0.0-0.4); BILIRUBIN,TOTAL 0.5 mg/dL (0.2-1.3); BLOOD UREA NITROGEN 11 mg/dL (7-20); CALCIUM 8.9 mg/dL (8.4-10.2); CARBON DIOXIDE 24 mmol/L (22-30); CHLORIDE 95 mmol/L (98-107); GLUCOSE 132 mg/dL (75-110); POTASSIUM 4.3 mmol/L (3.6-5.0); SODIUM 133.1 mmol/L (137-145); TOTAL PROTEIN 6.8 g/dL (6.3-8.2)
--- NOTE | 2018-05-30 20:19 | RADIOLOGY REPORT (SQ) ---
EXAM DESCRIPTION: CHEST SINGLE VIEW COMPLETED DATE/TIME: 05/30/2018 7:36 pm REASON FOR STUDY: sob, distress COMPARISON: 05/11/2018 EXAM PARAMETERS: NUMBER OF VIEWS: One view. TECHNIQUE: Single frontal radiographic view of the chest acquired. RADIATION DOSE: NA LIMITATIONS: None. FINDINGS: LUNGS AND PLEURA: Persistent retrocardiac opacification. No interval change. No pleural effusion. No mass. MEDIASTINUM AND HILAR STRUCTURES: No masses. Contour normal. HEART AND VASCULAR STRUCTURES: Heart normal in size. Normal vasculature. BONES: No acute findings. HARDWARE: None in the chest. OTHER: No other significant finding. IMPRESSION: There is what appears to be persistent atelectatic change in left lower lobe. No acute cardiopulmonary disease. TECHNICAL DOCUMENTATION: JOB ID: [id number]- All Rights Reserved Reading location - IP/workstation name: [email or web address]
[2018-05-30 20:48] LABS: VENOUS BLOOD BASE EXCESS -0.9 mmol/L; VENOUS BLOOD HCO3 23.3 mmol/L (20-32); VENOUS BLOOD PCO2 36.9 mmHg (35-63); VENOUS BLOOD PH 7.42 (7.30-7.42)
[2018-05-31] MEDS ORDERED: IPRATROPIUM/ALBUTEROL 0.5-2.5 MG/3 ML AMPUL NEB PRN (00:55)
--- NOTE | 2018-05-31 00:55 | PDOC H&P ---
History of Present Illness Admission Date/PCP: 05/30/18 22:02 WILEY FRANKLIN MD Patient complains of: Shortness of breath, fever History of Present Illness: DANE HERNÁNDEZ is a 78 year old female presenting to the emergency department secondary to difficulty breathing. Symptoms have been present for the past 10 days with worsening over the last 1 day. Patient was also found to have a temperature of 102 yesterday. Patient was recently discharged the hospital 3 weeks ago secondary to underlying pneumonia. Patient has known COPD and is on 2.5 L of oxygen via nasal cannula continuously at home. Patient also continues to smoke. is present at bedside who is providing history of present illness. States patient was in restaurant distress at home and found to have oxygen saturation in the 70s at which point EMS was called and patient was brought to the emergency room for further workup and evaluation. Past Medical History Cardiac Medical History: Reports: Coronary Artery Disease, Hyperlipidema, Hypertension, Peripheral Vascular Disease Denies: Myocardial Infarction Pulmonary Medical History: Reports: Asthma, Bronchitis, Chronic Obstructive Pulmonary Disease (COPD), Respiratory Failure Neurological Medical History: Reports: Seizures - LAST 1 MONTH AGO Endocrine Medical History: Reports: Diabetes Mellitus Type 2 GI Medical History: Denies: Hepatitis, Hiatal Hernia Musculoskeltal Medical History: Denies: Arthritis Skin Medical History: Denies: Eczema, Psoriasis Psychiatric Medical History: Denies: Depression Hematology: Denies: Anemia, Sickle Cell Disease, Bleeding Tendencies Past Surgical History Past Surgical History: Reports: Cardiac Catheterization - x3, Cholecystectomy, Hysterectomy - Full Denies: Amputation, Mastectomy, Pacemaker Social History Lives with: Spouse/Significant other Smoking Status: Current Every Day Smoker Frequency of Alcohol Use: None Hx Recreational Drug Use: No Drugs: None Hx Prescription Drug Abuse: No Family History Family History: None, Reviewed & Not Pertinent Parental Family History Reviewed: Yes Children Family History Reviewed: Yes Sibling(s) Family History Reviewed.: Yes Medication/Allergy Home Medications: Albuterol Sulfate [Albuterol Sulfate 2.5mg/3 mL] 2.5 mg IH 5XD 05/12/18 Albuterol Sulfate [Ventolin HFA MDI 18 GM] 1 puff IH Q6HP PRN 05/12/18 Amitriptyline HCl [Elavil 100 mg Tablet] 200 mg PO QHS 05/12/18 Aspirin [Ecotrin 81 mg EC Tablet] 81 mg PO [id number] 05/12/18 Citalopram Hydrobromide [Celexa 20 mg Tablet] 40 mg PO DAILY 05/12/18 Diphenoxylate HCl/Atropine [Lomotil 2.5-0.025 mg Tablet] 2 tab PO DAILYP PRN 02/22 Docusate Sodium [Colace 100 mg Capsule] 100 mg PO DAILY 05/12/18 Fluticasone/Salmeterol [Advair 500-50 Diskus 14 Dose/Diskus] 1 puff IH Q12 05/12 Hydrocodone/Acetaminophen [Hydrocodone-Acetamin 7.5-325] 1 tab PO Q6HP PRN 05/12 Lovastatin 40 mg PO DAILY 05/12/18 Metformin HCl [Glucophage 500 mg Tablet] 500 mg PO BIDBS 05/12/18 Omeprazole 40 mg PO BID 05/12/18 Ondansetron [Zofran Odt] 8 mg PO Q8HP PRN 05/12/18 Phenytoin Sodium Extended [Dilantin 100 mg Capsule.er] 200 mg PO QHS 05/12/18 Ropinirole HCl [Requip] 0.5 mg PO BID 05/12/18 Tiotropium [place] [Spiriva Handihaler 5 Cap/Kit (18 Mcg/Cap)] 1 puff IH DAILY 05/12/18 Topiramate [Topamax] 50 mg PO Q12 05/12/18 Doxycycline Hyclate [Vibramycin 100 mg Tablet] 100 mg PO Q12 5 Days #10 tablet 05/13/18 Ipratropium/Albuterol Sulfate [Duoneb 3 ml Ampul] 3 ml NEB Q6 PRN #30 vial.neb 05/13/18 Prednisone 10 mg PO DAILY #30 tablet 05/13/18 Allergies/Adverse Reactions: ciprofloxacin [From Cipro] Allergy (Intermediate, Verified 05/30/18 19:06) Hives ciprofloxacin HCl [From Cipro] Allergy (Intermediate, Verified 05/30/18 19:06) Hives nitroglycerin [From Nitrostat IV] Allergy (Verified 05/30/18 19:06) Penicillins Allergy (Verified 05/30/18 19:06) promethazine HCl [From Phenergan] Allergy (Verified 05/30/18 19:06) Review of Systems Constitutional: PRESENT: chills, fever(s), weakness Eyes: ABSENT: visual disturbances Ears: ABSENT: hearing changes Cardiovascular: ABSENT: chest pain, dyspnea on exertion, edema, orthropnea, palpitations Respiratory: PRESENT: cough, dyspnea. ABSENT: hemoptysis Gastrointestinal: ABSENT: abdominal pain, constipation, diarrhea, hematemesis, hematochezia, nausea, vomiting Genitourinary: ABSENT: dysuria, hematuria Musculoskeletal: ABSENT: joint swelling Integumentary: ABSENT: rash, wounds Neurological: ABSENT: abnormal gait, abnormal speech, confusion, dizziness, focal weakness, syncope Psychiatric: ABSENT: anxiety, depression, homidical ideation, suicidal ideation Endocrine: ABSENT: cold intolerance, heat intolerance, polydipsia, polyuria Hematologic/Lymphatic: ABSENT: easy bleeding, easy bruising Physical Exam Vital Signs: Temp Pulse Resp BP Pulse Ox 100.8 F H 117 H 28 H 100 05/30/18 19:30 05/30/18 19:05 05/30/18 19:14 05/30/18 19:14 General appearance: PRESENT: no acute distress, well-developed, well-nourished Head exam: PRESENT: atraumatic, normocephalic Eye exam: PRESENT: conjunctiva pink, EOMI, PERRLA. ABSENT: scleral icterus Ear exam: PRESENT: normal external ear exam Mouth exam: PRESENT: moist, tongue midline Neck exam: ABSENT: carotid bruit, JVD, lymphadenopathy, thyromegaly Respiratory exam: PRESENT: decreased breath sounds, other - on BiPap. ABSENT: rales, rhonchi, wheezes Cardiovascular exam: PRESENT: tachycardia. ABSENT: diastolic murmur, rubs, systolic murmur Pulses: PRESENT: normal dorsalis pedis pul Vascular exam: PRESENT: normal capillary refill GI/Abdominal exam: PRESENT: normal bowel sounds, soft. ABSENT: distended, guarding, mass, organolmegaly, rebound, tenderness Rectal exam: PRESENT: deferred Extremities exam: PRESENT: full ROM. ABSENT: calf tenderness, clubbing, pedal edema Neurological exam: PRESENT: alert, awake, oriented to person, oriented to place , oriented to time, oriented to situation, CN II-XII grossly intact. ABSENT: motor sensory deficit Psychiatric exam: PRESENT: appropriate affect, normal mood. ABSENT: homicidal ideation, suicidal ideation Skin exam: PRESENT: dry, intact, warm. ABSENT: cyanosis, rash Results Laboratory Results: 05/30/18 23:49 Lactic Acid 1.6 05/30/18 05/30/18 18:30 18:30 WBC 14.0 H Hgb 11.5 L Sodium 133.1 L Potassium 4.3 Impressions: Chest X-Ray 05/30/18 19:16 IMPRESSION: There is what appears to be persistent atelectatic change in left lower lobe. No acute cardiopulmonary disease. Assessment & Plan - Diagnosis (2) Left lower lobe pneumonia Qualifiers: Pneumonia type: due to unspecified organism Qualified Code(s): J18.1 - Lobar pneumonia, unspecified organism Is this a current diagnosis for this admission?: Yes (3) Respiratory distress Is this a current diagnosis for this admission?: Yes (4) Sepsis Qualifiers: Sepsis type: sepsis due to unspecified organism Qualified Code(s): A41.9 - Sepsis, unspecified organism Is this a current diagnosis for this admission?: Yes (5) Tobacco abuse Is this a current diagnosis for this admission?: Yes Plan: Patient to be admitted to [facility] for further monitoring and evaluation. Patient to be continued on BiPAP with current settings. Maintain O2 sats between 88 and 92%. Patient started on vancomycin, cefepime, azithromycin in ER, will continue with his antibiotic regimen. Repeat CBC, BMP in a.m. present at bedside. Maintain gentle hydration overnight. Tylenol, ibuprofen as needed pain, fever. DuoNeb's every 4 as needed. Will continue with Solu-Medrol IV every 8 hours. 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 for assistance in further evaluation and management. We will continue to monitor closely. - Time Time Spent: 30 to 50 Minutes Medications reviewed and adjusted accordingly: Yes Anticipated discharge: Home
[2018-05-31] MEDS: METHYLPREDNISOLONE INJ 40 MG/1 ML SDV IV SCH ×3 (02:59→18:12)
--- NOTE | 2018-05-31 09:04 | EKG REPORT ---
SEVERITY:- ABNORMAL ECG - SINUS TACHYCARDIA NONSPECIFIC INTRAVENTRICULAR CONDUCTION DELAY LOW VOLTAGE IN FRONTAL LEADS : Confirmed by: Samuel Montalvo 31-May-2018 09:03:15
--- NOTE | 2018-05-31 15:48 | PDOC PROGRESS REPORT ---
Subjective Progress Note for:: 05/31/18 Subjective:: DANE HERNÁNDEZ is a 78 year old female presenting to the emergency department secondary to difficulty breathing. Symptoms have been present for the past 10 days with worsening over the last 1 day. Patient was also found to have a temperature of 102 yesterday. Patient was recently discharged the hospital 3 weeks ago secondary to underlying pneumonia. Patient has known COPD and is on 2.5 L of oxygen via nasal cannula continuously at home. Patient also continues to smoke. is present at bedside who is providing history of present illness. States patient was in Respiratory distress at home and found to have oxygen saturation in the 70s at which point EMS was called and patient was brought to the emergency room for further workup and evaluation. Reason For Visit: SEPSIS, LLL PNEUMONIA, COPD EXAC Physical Exam Vital Signs: Temp Pulse Resp BP Pulse Ox 97.2 F 77 20 94/52 L 100 05/31/18 11:03 05/31/18 14:00 05/31/18 13:11 05/31/18 11:03 05/31/18 13:11 Intake & Output 05/30/18 05/31/18 06/01/18 06:59 06:59 06:59 Intake Total 100 711 Output Total 200 Balance 100 511 Weight 41.3 kg General appearance: PRESENT: no acute distress, thin, other - Elderly and frail Head exam: PRESENT: atraumatic Neck exam: ABSENT: JVD Respiratory exam: PRESENT: crackles, rhonchi, symmetrical. ABSENT: wheezes Cardiovascular exam: PRESENT: RRR, +S1, +S2. ABSENT: diastolic murmur, rubs, systolic murmur Pulses: PRESENT: normal dorsalis pedis pul GI/Abdominal exam: PRESENT: normal bowel sounds, soft. ABSENT: distended, guarding, mass, organolmegaly, rebound, tenderness Rectal exam: PRESENT: deferred Extremities exam: PRESENT: full ROM. ABSENT: calf tenderness, clubbing, pedal edema Neurological exam: PRESENT: alert, awake, oriented to person, oriented to place , oriented to situation Psychiatric exam: PRESENT: appropriate affect Results Laboratory Results: 05/30/18 23:49 Lactic Acid 1.6 Impressions: Chest X-Ray 05/30/18 19:16 IMPRESSION: There is what appears to be persistent atelectatic change in left lower lobe. No acute cardiopulmonary disease. Assessment & Plan - Diagnosis (1) Acute on chronic respiratory failure with hypoxemia Is this a current diagnosis for this admission?: Yes (2) Left lower lobe pneumonia Qualifiers: Pneumonia type: due to unspecified organism Qualified Code(s): J18.1 - Lobar pneumonia, unspecified organism Is this a current diagnosis for this admission?: Yes (3) Sepsis Qualifiers: Sepsis type: sepsis due to unspecified organism Qualified Code(s): A41.9 - Sepsis, unspecified organism Is this a current diagnosis for this admission?: Yes (4) Protein-calorie malnutrition, moderate Is this a current diagnosis for this admission?: Yes - Time Time Spent with patient: 15-24 minutes Medications reviewed and adjusted accordingly: Yes Anticipated discharge: Home Within: within 72 hours - Inpatient Certification Medical Necessity: Need for IV Antibiotics, Risk of Complication if Not Cared For in Hospital - Plan Summary Plan Summary: Patient is currently on BiPAP as needed as well as oxygen support she is also on vancomycin cefepime and azithromycin and will suggest de-escalation as appropriate For COPD she is on bronchodilators as well as Solu-Medrol
[2018-05-31] MEDS ORDERED: (PENDING PHARMACY ID) (Ropinirole Hcl [Requip] 0.5 MG) PO SCH (18:00)
[2018-05-31] MEDS ORDERED: PHENYTOIN SODIUM EXTENDED 100 MG CAPSULE PO SCH (22:00)
[2018-05-31] MEDS ORDERED: ATORVASTATIN CALCIUM 10 MG TABLET PO SCH (22:00)
[2018-05-31] MEDS ORDERED: AMITRIPTYLINE HCL 200 MG PO SCH (22:00)
[2018-05-31] MEDS ORDERED: AMITRIPTYLINE HCL 50 MG TABLET PO SCH (22:00)
[2018-05-31] MEDS: FLUTICASONE/SALMETEROL DISKUS 500-50 MCG/DOSE IH SCH (22:31)
[2018-05-31] MEDS: ROPINIROLE HCL 0.25 MG TABLET PO SCH (22:32)
[2018-05-31] MEDS: TOPIRAMATE 25 MG TABLET PO SCH (22:34)
[2018-06-01] MEDS: METHYLPREDNISOLONE INJ 40 MG/1 ML SDV IV SCH ×2 (01:12→09:09)
[2018-06-01 06:42] LABS: ABSOLUTE LYMPHOCYTES (AUTO) 0.5 10^3/uL (0.5-4.7); ABSOLUTE MONOCYTES (AUTO) 0.3 10^3/uL (0.1-1.4); ABSOLUTE NEUT (AUTO) 7.7 10^3/uL (1.7-8.2); BASOPHILS % (AUTO) 0.1 % (0-2); HEMOGLOBIN 9.7 g/dL (12.0-15.5); LYMPHOCYTES % (AUTO) 5.6 % (13-45); MEAN CORPUSCULAR HEMOGLOBIN 31.9 pg (27.0-33.4); MEAN CORPUSCULAR HGB CONC 34.5 g/dL (32.0-36.0); MEAN CORPUSCULAR VOLUME 93 fl (80-97); MONOCYTES % (AUTO) 3.3 % (3-13); PLATELET COUNT 261 10^3/uL (150-450); RED BLOOD COUNT 3.03 10^6/uL (3.72-5.28); TOTAL CELLS COUNTED % (AUTO) 100 %; WHITE BLOOD COUNT 8.5 10^3/uL (4.0-10.5)
[2018-06-01 07:05] LABS: ANION GAP 8 (5-19); BLOOD UREA NITROGEN 11 mg/dL (7-20); CALCIUM 8.4 mg/dL (8.4-10.2); CARBON DIOXIDE 23 mmol/L (22-30); CHLORIDE 104 mmol/L (98-107); GLUCOSE 105 mg/dL (75-110); POTASSIUM 4.6 mmol/L (3.6-5.0)
[2018-06-01] MEDS: FLUTICASONE/SALMETEROL DISKUS 500-50 MCG/DOSE IH SCH (09:09)
[2018-06-01] MEDS: TOPIRAMATE 25 MG TABLET PO SCH (09:10)
[2018-06-01] MEDS: ROPINIROLE HCL 0.25 MG TABLET PO SCH (09:10)
[2018-06-01] MEDS ORDERED: CITALOPRAM HYDROBROMIDE 20 MG TABLET PO SCH (10:00)
[2018-06-01] MEDS ORDERED: ASPIRIN 81 MG TABLET, ENT COATED PO SCH (10:00)
[2018-06-01] MEDS ORDERED: (PENDING PHARMACY ID) (Lovastatin [Lovastatin] 40 MG) PO SCH (10:00)
[2018-06-01] MEDS ORDERED: HYDROCODONE/ACETAMINOPHEN 10-325 MG TABLET PO PRN (12:08)
[2018-06-01 13:39] VITALS: BP 117/73
--- NOTE | 2018-06-01 15:07 | PDOC DISCHARGE SUMMARY ---
General - Admit/Disc Date/PCP Admission Date/Primary Care Provider: 05/30/18 22:02 WILEY OGNGORA MD Discharge Date: 06/01/18 - Discharge Diagnosis (1) COPD exacerbation Is this a current diagnosis for this admission?: Yes Summary: Antibiotics were withheld. The patient's oxygen, steroids, and nebs were titrated and weaned. The patient is back to baseline and able to complete sentences. (2) Acute on chronic respiratory failure with hypoxemia Is this a current diagnosis for this admission?: Yes Summary: She is on 2 L currently which is better than her home setting at the moment. (3) Tobacco dependency Is this a current diagnosis for this admission?: Yes Summary: Please quit smoking. (4) Protein-calorie malnutrition, moderate Is this a current diagnosis for this admission?: Yes (5) CAD (coronary artery disease) Is this a current diagnosis for this admission?: Yes Summary: No change in her medications. (6) Chronic constipation Is this a current diagnosis for this admission?: Yes (7) Chronic pain Is this a current diagnosis for this admission?: Yes (8) GERD (gastroesophageal reflux disease) Is this a current diagnosis for this admission?: Yes (9) Hyperlipidemia Is this a current diagnosis for this admission?: Yes (10) Restless leg syndrome Is this a current diagnosis for this admission?: Yes (11) Seizure disorder Is this a current diagnosis for this admission?: Yes (12) Type 2 diabetes mellitus Is this a current diagnosis for this admission?: Yes - Additional Information Resuscitation Status: Full Code Discharge Diet: As Tolerated Discharge Activity: Activity As Tolerated Prescriptions: Prednisone [Deltasone 10 mg Tablet] 10 mg PO ASDIR PRN #21 tablet PRN Reason: Home Medications: Albuterol Sulfate [Ventolin 0.083% Neb 2.5 mg/3 mL Ampul] 2.5 mg NEB 5XDP PRN Albuterol Sulfate [Ventolin HFA MDI 18 GM] 1 puff IH Q4HP PRN 05/31/18 Amitriptyline HCl [Elavil 100 mg Tablet] 200 mg PO QHS 05/31/18 Aspirin [Ecotrin 81 mg EC Tablet] 81 mg PO DAILY 05/31/18 Citalopram Hydrobromide [Celexa 20 mg Tablet] 40 mg PO DAILY 05/31/18 Docusate Sodium [Colace] 100 mg PO DAILY 05/31/18 Fluticasone/Salmeterol [Advair 500-50 Diskus 28 Dose] 1 inh IH Q12 05/31/18 Hydrocodone Bit/Acetaminophen [Hydrocodon-Acetaminophn 10-325] 1 each PO Q6HP PRN 05/31/18 Lovastatin 40 mg PO DAILY 05/31/18 Metformin HCl [Glucophage] 500 mg PO BIDACBS 05/31/18 Omeprazole 40 mg PO BID 05/31/18 Ondansetron HCl [Zofran 8 mg Tablet] 8 mg PO Q8HP PRN 05/31/18 Phenytoin Sodium Extended [Dilantin] 200 mg PO QHS 05/31/18 Ropinirole HCl [Requip] 0.5 mg PO BID 05/31/18 Tiotropium [place] [Spiriva Handihaler 18 mcg/dose (30 Dose)] 1 cap IH DAILY Topiramate [Topamax] 50 mg PO Q12 05/31/18 Prednisone [Deltasone 10 mg Tablet] 10 mg PO ASDIR PRN #21 tablet 06/01/18 History of Present Illness Patient complains of: Shortness of breath History of Present Illness: DANE HERNÁNDEZ is a 78 year old female with a past medical history of oxygen- dependent chronic cardiopulmonary disease and ongoing tobacco dependency that presented to the emergency department secondary to difficulty breathing. Symptoms have been present for the past 10 days with worsening over the last 24 hours prior to presentation. Patient was recently discharged the hospital 3 weeks ago secondary to underlying pneumonia. Patient has known COPD and is on 2.5 L of oxygen via nasal cannula continuously at home. States patient was in distress at home and found to have oxygen saturation in the 70s at which point EMS was called and patient was brought to the emergency room for further workup and evaluation. Hospital Course Hospital Course: The patient was admitted to [facility]. The patient was placed on scheduled nebs as well as PRN nebs, steroids, and supplemental oxygen. The patient's oxygen, steroids, and nebs were titrated and weaned. The patient is back to baseline and able to complete sentences. The patient received antibiotics while in the emergency department but these were not continued in the inpatient setting. The patient made afebrile was not producing any sputum. My rounding the day of discharge the patient was absolutely adamant for discharge saying that she was going to leave or sign out. Clinically, the patient's symptoms appear to be at baseline the patient appears to be stable for discharge. Patient is again a high risk for readmission given her ongoing tobacco use. Spent 3 minutes discussing smoking cessation education. The patient declines any pharmacological intervention at this time. Physical Exam Vital Signs: Temp Pulse Resp BP Pulse Ox 97.6 F 67 20 100/53 L 100 06/01/18 12:40 06/01/18 12:40 06/01/18 12:40 06/01/18 12:40 06/01/18 12:40 Intake & Output 05/30/18 05/31/18 06/01/18 23:59 23:59 23:59 Intake Total 1011 871 Output Total 800 300 Balance 211 571 Weight 41.3 kg 41.4 kg General appearance: PRESENT: no acute distress, well-developed, well-nourished Head exam: PRESENT: atraumatic, normocephalic Eye exam: PRESENT: conjunctiva pink, EOMI, PERRLA. ABSENT: scleral icterus Ear exam: PRESENT: normal external ear exam Mouth exam: PRESENT: moist, tongue midline Neck exam: ABSENT: carotid bruit, JVD, lymphadenopathy, thyromegaly Respiratory exam: PRESENT: decreased breath sounds, symmetrical, unlabored, wheezes - Faint and scattered. ABSENT: rales, rhonchi Cardiovascular exam: PRESENT: RRR. ABSENT: diastolic murmur, rubs, systolic murmur Pulses: PRESENT: normal dorsalis pedis pul Vascular exam: PRESENT: normal capillary refill GI/Abdominal exam: PRESENT: normal bowel sounds, soft. ABSENT: distended, guarding, mass, organolmegaly, rebound, tenderness Rectal exam: PRESENT: deferred Extremities exam: PRESENT: full ROM. ABSENT: calf tenderness, clubbing, pedal edema Neurological exam: PRESENT: alert, awake, oriented to person, oriented to place , oriented to time, oriented to situation, CN II-XII grossly intact. ABSENT: motor sensory deficit Psychiatric exam: PRESENT: appropriate affect, normal mood. ABSENT: homicidal ideation, suicidal ideation Skin exam: PRESENT: dry, intact, warm. ABSENT: cyanosis, rash Results Laboratory Results: Labs- Last Values WBC 8.5 10^3/uL (4.0-10.5) 06/01/18 06:13 RBC 3.03 10^6/uL (3.72-5.28) L 06/01/18 06:13 Hgb 9.7 g/dL (12.0-15.5) L 06/01/18 06:13 Hct 28.0 % (36.0-47.0) L 06/01/18 06:13 MCV 93 fl (80-97) 06/01/18 06:13 MCH 31.9 pg (27.0-33.4) 06/01/18 06:13 MCHC 34.5 g/dL (32.0-36.0) 06/01/18 06:13 RDW 14.0 % (11.5-14.0) 06/01/18 06:13 Plt Count 261 10^3/uL (150-450) 06/01/18 06:13 Seg Neutrophils % 91.0 % (42-78) H 06/01/18 06:13 Lymphocytes % 5.6 % (13-45) L 06/01/18 06:13 Monocytes % 3.3 % (3-13) 06/01/18 06:13 Eosinophils % 0.0 % (0-6) 06/01/18 06:13 Basophils % 0.1 % (0-2) 06/01/18 06:13 Absolute Neutrophils 7.7 10^3/uL (1.7-8.2) 06/01/18 06:13 Absolute Lymphocytes 0.5 10^3/uL (0.5-4.7) 06/01/18 06:13 Absolute Monocytes 0.3 10^3/uL (0.1-1.4) 06/01/18 06:13 Absolute Eosinophils 0.0 10^3/uL (0.0-0.6) 06/01/18 06:13 Absolute Basophils 0.0 10^3/uL (0.0-0.2) 06/01/18 06:13 VBG pH 7.42 (7.30-7.42) 05/30/18 20:32 VBG pCO2 36.9 mmHg (35-63) 05/30/18 20:32 VBG HCO3 23.3 mmol/L (20-32) 05/30/18 20:32 VBG Base Excess -0.9 mmol/L 05/30/18 20:32 Sodium 135.0 mmol/L (137-145) L 06/01/18 06:13 Potassium 4.6 mmol/L (3.6-5.0) 06/01/18 06:13 Chloride 104 mmol/L (98-107) 06/01/18 06:13 Carbon Dioxide 23 mmol/L (22-30) 06/01/18 06:13 Anion Gap 8 (5-19) 06/01/18 06:13 BUN 11 mg/dL (7-20) 06/01/18 06:13 Creatinine 0.66 mg/dL (0.52-1.25) 06/01/18 06:13 Est GFR ( Amer) > 60 (>60) 06/01/18 06:13 Est GFR (Non-Af Amer) > 60 (>60) 06/01/18 06:13 Glucose 105 mg/dL (75-110) 06/01/18 06:13 Lactic Acid 1.6 mmol/L (0.7-2.1) 05/30/18 23:49 Calcium 8.4 mg/dL (8.4-10.2) 06/01/18 06:13 Total Bilirubin 0.5 mg/dL (0.2-1.3) 05/30/18 18:30 Direct Bilirubin 0.4 mg/dL (0.0-0.4) 05/30/18 18:30 Neonat Total Bilirubin Not Reportable 05/30/18 18:30 Neonat Direct Bilirubin Not Reportable 05/30/18 18:30 Neonat Indirect Bili Not Reportable 05/30/18 18:30 AST 28 U/L (14-36) 05/30/18 18:30 ALT 25 U/L (9-52) 05/30/18 18:30 Alkaline Phosphatase 127 U/L (38-126) H 05/30/18 18:30 Total Protein 6.8 g/dL (6.3-8.2) 05/30/18 18:30 Albumin 3.5 g/dL (3.5-5.0) 05/30/18 18:30 Impressions: Chest X-Ray 05/30/18 19:16 IMPRESSION: There is what appears to be persistent atelectatic change in left lower lobe. No acute cardiopulmonary disease. Qualifiers - * PATIENT BEING DISCHARGED WITH ANY OF THE FOLLOWING DIAGNOSIS: No Plan Discharge Plan: The patient is to followup with their primary care provider, Dr. Gongora, within one week for hospital followup regarding chronic ulcerative pulmonary disease exacerbation. Do recommend referral to pulmonology. Time Spent: Less than 30 Minutes
[2018-06-02] MEDS ORDERED: DOCUSATE SODIUM 100 MG CAPSULE PO SCH (10:00)
[2018-06-02] MEDS ORDERED: TIOTROPIUM BROMIDE DPI 5 CAP/KIT (18 MCG/CAP) IH SCH (10:00)
--- NOTE | 2018-07-22 16:39 | Progress Note ---
Provider Note Provider Note: This is an addendum to the Discharge summary to address a query. Sepsis and Pneumonia were not a final diagnosis. The patient was not treated with antibiotics nor was the patient managed as sepsis. COPD exacerbation is the FINAL DIAGNOSIS.
== END 2018-06-01 15:50 | disposition home or self-care (01) | DRG 190 ==
LOC: ER 19:03 → EH 22:02 → 3S 05-31 03:37
PROVIDERS: ADMIT Family Medicine; ATTEND Family Medicine
PROC: 5A09457 Assistance with Respiratory Ventilation, 24-96 Consecutive Hours, Continuous Positive Airway Pressure (ICD-10-PCS; principal; 2018-05-30)
DX: J44.1 Chronic obstructive pulmonary disease with (acute) exacerbation (principal); J96.21 Acute and chronic respiratory failure with hypoxia; Z68.1 Body mass index [BMI] 19.9 or less, adult; E44.0 Moderate protein-calorie malnutrition; E11.51 Type 2 diabetes mellitus with diabetic peripheral angiopathy without gangrene; K21.9 Gastro-esophageal reflux disease without esophagitis; G40.909 Epilepsy, unspecified, not intractable, without status epilepticus; I25.10 Atherosclerotic heart disease of native coronary artery without angina pectoris; K59.00 Constipation, unspecified; G25.81 Restless legs syndrome; G89.29 Other chronic pain; E78.5 Hyperlipidemia, unspecified; Z79.84 Long term (current) use of oral hypoglycemic drugs; I10 Essential (primary) hypertension; F17.210 Nicotine dependence, cigarettes, uncomplicated; Z79.82 Long term (current) use of aspirin; Z79.52 Long term (current) use of systemic steroids; Z79.899 Other long term (current) drug therapy; Z99.81 Dependence on supplemental oxygen; Z90.49 Acquired absence of other specified parts of digestive tract; Z90.710 Acquired absence of both cervix and uterus; Z88.1 Allergy status to other antibiotic agents; Z88.8 Allergy status to other drugs, medicaments and biological substances; Z86.73 Personal history of transient ischemic attack (TIA), and cerebral infarction without residual deficits
CPT/HCPCS: 36415; 71045; 80048; 80053; 82803; 83605; 85025; 87040; 93005; 93010; 94640; 94660; 96361; 96365; 96375; 99291; J0692; J2060; J2920; J3370; J3490; J7120; J7620

== ENCOUNTER 2018-06-18 21:00 | Emergency (ER) | payer MEDICARE, MEDICAID ==
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
[2018-06-18 22:14] LABS: ABSOLUTE EOSINOPHILS # (AUTO) 0.1 10^3/uL (0.0-0.6); ABSOLUTE LYMPHOCYTES (AUTO) 1.5 10^3/uL (0.5-4.7); ABSOLUTE MONOCYTES (AUTO) 0.9 10^3/uL (0.1-1.4); ABSOLUTE NEUT (AUTO) 7.7 10^3/uL (1.7-8.2); BASOPHILS % (AUTO) 0.5 % (0-2); EOSINOPHILS % (AUTO) 1.1 % (0-6); HEMATOCRIT 31.4 % (36.0-47.0); HEMOGLOBIN 10.4 g/dL (12.0-15.5); LYMPHOCYTES % (AUTO) 14.7 % (13-45); MEAN CORPUSCULAR HEMOGLOBIN 31.4 pg (27.0-33.4); MEAN CORPUSCULAR HGB CONC 33.3 g/dL (32.0-36.0); MEAN CORPUSCULAR VOLUME 94 fl (80-97); MONOCYTES % (AUTO) 8.8 % (3-13); PLATELET COUNT 398 10^3/uL (150-450); RED BLOOD COUNT 3.33 10^6/uL (3.72-5.28); RED CELL DISTRIBUTION WIDTH 14.7 % (11.5-14.0); SEGMENTED NEUTROPHILS % (AUTO) 74.9 % (42-78); TOTAL CELLS COUNTED % (AUTO) 100 %; WHITE BLOOD COUNT 10.3 10^3/uL (4.0-10.5)
[2018-06-18 22:15] LABS: ALANINE AMINOTRANSFERASE 12 U/L (9-52); ALBUMIN 3.5 g/dL (3.5-5.0); ALKALINE PHOSPHATASE 91 U/L (38-126); ANION GAP 8 (5-19); ASPARTATE AMINO TRANSFERASE 17 U/L (14-36); BILIRUBIN,DIRECT 0.3 mg/dL (0.0-0.4); BILIRUBIN,TOTAL 0.3 mg/dL (0.2-1.3); BLOOD UREA NITROGEN 17 mg/dL (7-20); CALCIUM 9.5 mg/dL (8.4-10.2); CARBON DIOXIDE 26 mmol/L (22-30); CHLORIDE 105 mmol/L (98-107); GLUCOSE 78 mg/dL (75-110); POTASSIUM 4.5 mmol/L (3.6-5.0); TOTAL PROTEIN 6.6 g/dL (6.3-8.2)
[2018-06-18 22:32] LABS: AMORPHOUS SEDIMENT,URINE TRACE /HPF; APPEARANCE,URINE CLOUDY; BILIRUBIN,URINE NEGATIVE (NEGATIVE); COLOR,URINE YELLOW; GLUCOSE, URINE NEGATIVE (NEGATIVE); KETONES,URINE NEGATIVE (NEGATIVE); LEUKOCYTE ESTERASE,URINE NEGATIVE (NEGATIVE); NITRITE,URINE NEGATIVE (NEGATIVE); PROTEIN,URINE NEGATIVE (NEGATIVE); URINE SPECIFIC GRAVITY 1.018
--- NOTE | 2018-06-18 22:46 | RADIOLOGY REPORT (SQ) ---
XR CHEST 1 VIEW HISTORY: cough. COMPARISON: 05/10/2018 FINDINGS/IMPRESSION: Normal cardiomediastinal contours. Redemonstrated atelectasis of the left lower lobe with retrocardiac opacification. Right lung is grossly clear. No large pleural effusions. No acute osseous findings.
--- NOTE | 2018-06-18 22:48 | RADIOLOGY REPORT (SQ) ---
CT HEAD WITHOUT IV CONTRAST HISTORY: Seizure. COMPARISON: 01/03/2016 TECHNIQUE: CT scan of the brain. This exam was performed according to our departmental dose-optimization program, which includes automated exposure control, adjustment of the mA and/or kV according to patient size and/or use of iterative reconstruction technique. FINDINGS: No acute intracranial hemorrhage or extra-axial fluid collection is seen. No midline shift, mass effect, or hydrocephalus. The martines-white matter differentiation is preserved without evidence of acute infarction. Scattered areas of hypoattenuation within the bilateral periventricular white matter consistent with chronic microvascular ischemia. The ventricles, cisterns, and sulci are age-appropriate. Paranasal sinuses and mastoid air cells are clear. Calvarium is intact. IMPRESSION: No acute intracranial abnormality.
[2018-06-18 22:49] LABS: ARTERIAL BLOOD BASE EXCESS -1.4 mmol/L; ARTERIAL BLOOD H2CO3 1.22 mmol/L (1.05-1.35); ARTERIAL BLOOD HCO3 23.5 mmol/L (20-24); ARTERIAL BLOOD PCO2 40.5 mmHg (35-45); ARTERIAL BLOOD PH 7.38 (7.35-7.45); ARTERIAL BLOOD PO2 156.1 mmHg (80-100); ARTERIAL BLOOD TOTAL CO2 24.8 mmol/L (21-25)
[2018-06-18 22:52] LABS: ARTERIAL BLOOD FIO2 40% 5L
--- NOTE | 2018-06-18 23:11 | EKG REPORT ---
SEVERITY:- ABNORMAL ECG - SINUS RHYTHM LOW VOLTAGE IN FRONTAL LEADS NONSPECIFIC T ABNORMALITIES, ANTERIOR LEADS RBBB : Confirmed by: Samuel Montalvo 18-Jun-2018 23:11:40
[2018-06-18] MEDS ORDERED: PHENYTOIN SODIUM INJ/PF 250 MG/5 ML SDV IV ONE (23:54)
[2018-06-19] MEDS ORDERED: NORMAL SALINE 500 ML IV ONE (00:48)
[2018-06-19 02:20] VITALS: BP 105/66
== END 2018-06-19 02:30 | disposition home or self-care (01) ==
LOC: ER 21:00
DX: G40.909 Epilepsy, unspecified, not intractable, without status epilepticus (principal); Z79.899 Other long term (current) drug therapy; J44.0 Chronic obstructive pulmonary disease with (acute) lower respiratory infection; J18.9 Pneumonia, unspecified organism; R63.4 Abnormal weight loss; Z68.1 Body mass index [BMI] 19.9 or less, adult; M79.1 Myalgia; R05 Cough; M54.9 Dorsalgia, unspecified; G89.29 Other chronic pain; R06.02 Shortness of breath; R42 Dizziness and giddiness; R53.1 Weakness; I10 Essential (primary) hypertension; E11.51 Type 2 diabetes mellitus with diabetic peripheral angiopathy without gangrene; F17.210 Nicotine dependence, cigarettes, uncomplicated; Z99.81 Dependence on supplemental oxygen; M62.59 Muscle wasting and atrophy, not elsewhere classified, multiple sites; Z99.3 Dependence on wheelchair; Z88.1 Allergy status to other antibiotic agents; Z95.1 Presence of aortocoronary bypass graft; Z88.0 Allergy status to penicillin; Z88.8 Allergy status to other drugs, medicaments and biological substances
CPT/HCPCS: 93005; 99285; 96361; 96374; 36415; 82803; 80185; 85025; 80053; 81001; 84484; 71045; 70450; 93010; 36600; J1165; J7040

== ENCOUNTER 2018-08-31 12:38 | Inpatient (IN) | payer MEDICARE, MEDICAID ==
[2018-08-31] MEDS ORDERED: NORMAL SALINE 1000 ML 1,000 ML IV ONE ×2 (13:00→14:13)
[2018-08-31] MEDS ORDERED: MAGNESIUM SULFATE/D5W 1 GM/100 ML RTUPB IV ONE (13:03)
[2018-08-31] MEDS ORDERED: METHYLPREDNISOLONE INJ 125 MG/2 ML SDV IV ONE (13:03)
[2018-08-31] MEDS ORDERED: IPRATROPIUM/ALBUTEROL 0.5-2.5 MG/3 ML AMPUL NEB ONE (13:03)
--- NOTE | 2018-08-31 13:11 | ER Document Report ---
ED General - General Chief Complaint: Productive Cough Stated Complaint: FEVER AND COUGH Time Seen by Provider: 08/31/18 12:51 TRAVEL OUTSIDE OF THE [place] IN LAST 30 DAYS: No - HPI Notes: Patient is a 78-year-old female with a history of hypertension and oxygen dependent COPD with continued tobacco abuse who presents to the ED complaining of wet semi-productive cough, increased wheezing and shortness of breath x4-5 days with fever x1 day. Patient states that she is still able to eat and drink , but does have a decreased p.o. intake. She is urinating normally and having normal bowel movements. She has brought to the emergency department by EMS and was given Tylenol in route. She did have a temperature at that time of 101.3. Patient states that her was hospitalized this past week for pneumonia. She has been hospitalized in the past for COPD exacerbations. Denies any headache, neck pain, changes in vision/speech/mentation/hearing, sore throat, chest pain, palpitations, syncope, abdominal pain, nausea/vomiting/diarrhea, urinary retention, dysuria, hematuria, or rash. - Related Data Allergies/Adverse Reactions: ciprofloxacin [From Cipro] Allergy (Intermediate, Verified 05/30/18 19:06) Hives ciprofloxacin HCl [From Cipro] Allergy (Intermediate, Verified 05/30/18 19:06) Hives nitroglycerin [From Nitrostat IV] Allergy (Verified 05/30/18 19:06) Penicillins Allergy (Verified 05/30/18 19:06) promethazine HCl [From Phenergan] Allergy (Verified 05/30/18 19:06) Past Medical History - Social History Smoking Status: Current Every Day Smoker Family History: Reviewed & Not Pertinent Patient has suicidal ideation: No Patient has homicidal ideation: No - Past Medical History Cardiac Medical History: Reports: Hx Coronary Artery Disease, Hx Heart Attack, Hx Hypercholesterolemia, Hx Hypertension, Hx Peripheral Vascular Disease Pulmonary Medical History: Reports: Hx Asthma, Hx Bronchitis, Hx COPD, Hx Respiratory Failure Neurological Medical History: Reports: Hx Cerebrovascular Accident - x3, Hx Seizures Endocrine Medical History: Reports: Hx Diabetes Mellitus Type 2 Renal/ Medical History: Denies: Hx Peritoneal Dialysis GI Medical History: Denies: Hx Hepatitis, Hx Hiatal Hernia, Hx Ulcer Musculoskeletal Medical History: Denies Hx Arthritis Skin Medical History: Denies Hx Eczema, Denies Hx Psoriasis Psychiatric Medical History: Denies: Hx Depression Infectious Medical History: Denies: Hx Hepatitis Past Surgical History: Reports: Hx Cardiac Catheterization - x3, Hx Cholecystectomy, Hx Hysterectomy, Hx Kidney (Renal Surgery) - Bladder lift. Denies: Hx Mastectomy, Hx Open Heart Surgery, Hx Pacemaker - Immunizations Hx Diphtheria, Pertussis, Tetanus Vaccination: Yes Hx Pneumococcal Vaccination: 10/08/08 Review of Systems - Review of Systems -: Yes All other systems reviewed and negative Physical Exam - Vital signs Vitals: Temp Pulse Resp BP Pulse Ox 98.3 F 107 H 21 H 93/50 L 99 08/31/18 12:47 08/31/18 12:47 08/31/18 12:47 08/31/18 12:47 08/31/18 12:47 - Notes Notes: PHYSICAL EXAMINATION: GENERAL: Well-appearing, well-nourished and in no acute distress. A&Ox4. Answers questions appropriately. HEAD: Atraumatic, normocephalic. EYES: Pupils equal round and reactive to light, extraocular movements intact, sclera anicteric, conjunctiva are normal. ENT: Nares patent and with scant clear discharge. oropharynx clear without exudates. No tonsilar hypertrophy or erythema. Moist mucous membranes. No obvious airway compromise. NECK: Normal range of motion, supple without lymphadenopathy LUNGS: wheezes and rhonchi throughout, no retractions. HEART: Regular rate and rhythm without murmurs, rubs, gallops. ABDOMEN: Soft, nontender, nondistended abdomen. No guarding, no rebound. No masses appreciated. Normal bowel sounds present. No CVA tenderness bilaterally. Musculoskeletal: FROM to passive/active. Strength 5+/5. Patricia neg. No asymmetry to LE's. Extremities: No cyanosis, clubbing, or edema b/l. Peripheral pulses 2+. Capillary refill less than 3 seconds. NEUROLOGICAL: Normal speech. Cranial nerves grossly intact. PSYCH: Normal mood, normal affect. SKIN: Warm, Dry, normal turgor, no rashes or lesions noted. Course - Re-evaluation Re-evalutation: 08/31/18 13:10 Pt currently afebrile, HR of 107, RR 24, and O2 99% on 2L NC. BP 83/54. Fluids, labs, imaging, and meds ordered. 08/31/18 14:[address] Tang who is in agreement with admit/plan and made antibiotic recommendations. Patient is currently an afebrile, well-hydrated, 78-year-old female who presents to the ED for presumed left lower lobe pneumonia in the setting of fever, tachypnea, productive cough, wheezing/shortness of breath. Patient has received breathing treatments as well as fluids and imaging. Patient is currently nontoxic-appearing and is able to tolerate p.o. Patient has had lower blood pressure today with 90 systolic over 50s. She is 91 days from her previous admission date and less than 90 days from her discharge. Her was just discharged from the hospital this week after being diagnosed with pneumonia so patient has been exposed to hospital bacteria. We will treat her as hospital-acquired pneumonia at this time and admit to the hospitalist. I did speak with Dr. Sheffield who accepted patient to the medical floor. Patient is in agreement. - Vital Signs Vital signs: Temp Pulse Resp BP Pulse Ox 98.3 F 107 H 21 H 93/50 L 99 08/31/18 12:47 08/31/18 12:47 08/31/18 12:47 08/31/18 12:47 08/31/18 12:47 - Laboratory Result Diagrams: 08/31/18 13:15 08/31/18 13:15 Laboratory results interpreted by me: 08/31/18 08/31/18 13:15 13:15 WBC 10.8 H RBC 3.46 L Hgb 11.0 L Hct 32.4 L Seg Neutrophils % 80.8 H Lymphocytes % 7.8 L Absolute Neutrophils 8.7 H Sodium 133.3 L Carbon Dioxide 21 L Glucose 118 H ALT 7 L Alkaline Phosphatase 138 H Discharge - Discharge Clinical Impression: COPD exacerbation LLL pneumonia Qualifiers: Pneumonia type: due to unspecified organism Qualified Code(s): J18.1 - Lobar pneumonia, unspecified organism Condition: Stable Disposition: ADMITTED INPATIENT Admitting Provider: Hospitalist - Dr. Sheffield Unit Admitted: Medical Floor Referrals: WILEY FRANKLIN MD [Primary Care Provider] - Follow up as needed
[2018-08-31 13:40] LABS: ABSOLUTE LYMPHOCYTES (AUTO) 0.8 10^3/uL (0.5-4.7); ABSOLUTE MONOCYTES (AUTO) 1.2 10^3/uL (0.1-1.4); ABSOLUTE NEUT (AUTO) 8.7 10^3/uL (1.7-8.2); BASOPHILS % (AUTO) 0.3 % (0-2); HEMATOCRIT 32.4 % (36.0-47.0); LYMPHOCYTES % (AUTO) 7.8 % (13-45); MEAN CORPUSCULAR HEMOGLOBIN 31.9 pg (27.0-33.4); MEAN CORPUSCULAR HGB CONC 34.1 g/dL (32.0-36.0); MEAN CORPUSCULAR VOLUME 94 fl (80-97); MONOCYTES % (AUTO) 11.1 % (3-13); PLATELET COUNT 297 10^3/uL (150-450); RED BLOOD COUNT 3.46 10^6/uL (3.72-5.28); RED CELL DISTRIBUTION WIDTH 13.9 % (11.5-14.0); SEGMENTED NEUTROPHILS % (AUTO) 80.8 % (42-78); TOTAL CELLS COUNTED % (AUTO) 100 %; WHITE BLOOD COUNT 10.8 10^3/uL (4.0-10.5)
--- NOTE | 2018-08-31 13:41 | RADIOLOGY REPORT (SQ) ---
EXAM DESCRIPTION: CHEST SINGLE VIEW COMPLETED DATE/TIME: 08/31/2018 1:31 pm REASON FOR STUDY: cough, wheeze, fever COMPARISON: Chest films 05/30/2018, 10/15/2015 EXAM PARAMETERS: NUMBER OF VIEWS: One view. TECHNIQUE: Single frontal radiographic view of the chest acquired. RADIATION DOSE: NA LIMITATIONS: None. FINDINGS: LUNGS AND PLEURA: Lungs are hyperinflated and hyperlucent from obstructive disease. Minimal airspace disease in the left lateral costophrenic sulcus, atelectasis versus pneumonia. No pleural effusion. No pneumothorax. MEDIASTINUM AND HILAR STRUCTURES: No masses. Contour normal. HEART AND VASCULAR STRUCTURES: Heart normal in size. Normal vasculature. BONES: No acute findings. HARDWARE: None in the chest. OTHER: No other significant finding. IMPRESSION: Obstructive lung disease is minimal lateral left basilar airspace disease atelectasis ve rsus pneumonia TECHNICAL DOCUMENTATION: JOB ID: [id number] [employer]- All Rights Reserved Reading location - IP/workstation name: [email or web address]
[2018-08-31 13:50] LABS: VENOUS BLOOD BASE EXCESS -3.6 mmol/L; VENOUS BLOOD HCO3 21.2 mmol/L (20-32); VENOUS BLOOD PCO2 37.5 mmHg (35-63); VENOUS BLOOD PH 7.37 (7.30-7.42)
[2018-08-31 13:58] LABS: ALANINE AMINOTRANSFERASE 7 U/L (9-52); ALBUMIN 3.6 g/dL (3.5-5.0); ALKALINE PHOSPHATASE 138 U/L (38-126); ANION GAP 14 (5-19); ASPARTATE AMINO TRANSFERASE 31 U/L (14-36); BILIRUBIN,DIRECT 0.4 mg/dL (0.0-0.4); BILIRUBIN,TOTAL 0.4 mg/dL (0.2-1.3); BLOOD UREA NITROGEN 15 mg/dL (7-20); CALCIUM 9.2 mg/dL (8.4-10.2); CARBON DIOXIDE 21 mmol/L (22-30); CHLORIDE 98 mmol/L (98-107); GLUCOSE 118 mg/dL (75-110); POTASSIUM 3.7 mmol/L (3.6-5.0); SODIUM 133.3 mmol/L (137-145); TOTAL PROTEIN 6.7 g/dL (6.3-8.2)
[2018-08-31] MEDS ORDERED: AZTREONAM INJ 1 GM VIAL IV ONE (14:17)
[2018-08-31] MEDS ORDERED: VANCOMYCIN HCL INJ 1000 MG VIAL IV ONE (14:17)
[2018-08-31] MEDS ORDERED: HYDROCODONE/ACETAMINOPHEN 10-325 MG TABLET PO PRN (14:50)
[2018-08-31] MEDS ORDERED: ACETAMINOPHEN 325 MG TABLET PO PRN (14:51)
[2018-08-31] MEDS ORDERED: VANCOMYCIN HCL 0 MG in DEXTROSE 5%-WATER 250 ML IV NR (15:00)
[2018-08-31 15:07] LABS: A TYPE INFLUENZA AG NEGATIVE (NEGATIVE); B INFLUENZA AG NEGATIVE (NEGATIVE)
--- NOTE | 2018-08-31 15:46 | PDOC H&P ---
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 Patient says she has been having cough for a week now and it has been increasingly productive in the past 3 days with copious yellowish sputum. She says she had subjective fever this morning but denies chills. She says she has chronic SOB from her COPD and this is not worse from her baseline. Patient did have hospital admission in the past 3 months as she was here for COPD exacerbation and left lower lobe pneumonia in the last week of May. She denies any chest pain, palpitations, dizziness. She says her was recently admitted for acute bronchitis and was discharged last week. On encounter, patient is actively coughing with yellowish sputum noted on paper napkin. Past Medical History Cardiac Medical History: Reports: Coronary Artery Disease, Myocardial Infarction , Hyperlipidema, Hypertension, Peripheral Vascular Disease Pulmonary Medical History: Reports: Asthma, Bronchitis, Chronic Obstructive Pulmonary Disease (COPD), Respiratory Failure Neurological Medical History: Reports: Seizures Endocrine Medical History: Reports: Diabetes Mellitus Type 2 GI Medical History: Denies: Hepatitis, Hiatal Hernia Musculoskeltal Medical History: Denies: Arthritis Skin Medical History: Denies: Eczema, Psoriasis Psychiatric Medical History: Denies: Depression Hematology: Denies: Anemia, Sickle Cell Disease, Bleeding Tendencies Past Surgical History Past Surgical History: Reports: Cardiac Catheterization - x3, Cholecystectomy, Hysterectomy Denies: Amputation, Mastectomy, Pacemaker Social History Smoking Status: Current Every Day Smoker Frequency of Alcohol Use: None Hx Recreational Drug Use: No Drugs: None Hx Prescription Drug Abuse: No Family History Family History: Reviewed & Not Pertinent Parental Family History Reviewed: Yes - no premature CAD Children Family History Reviewed: No Sibling(s) Family History Reviewed.: No Medication/Allergy Home Medications: Albuterol Sulfate [Ventolin HFA MDI 18 GM] 1 puff IH Q6HP PRN 05/31/18 Fluticasone/Salmeterol [Advair 500-50 Diskus 28 Dose] 1 inh IH Q12 05/31/18 Lovastatin 40 mg PO DAILY 05/31/18 Phenytoin Sodium Extended [Dilantin] 200 mg PO QHS 05/31/18 Ropinirole HCl [Requip] 0.5 mg PO BID 05/31/18 Topiramate [Topamax] 50 mg PO Q12 05/31/18 Nitroglycerin [Nitrostat 0.4 mg (1/150 Gr) Tabs 25/Bottle] 1 tab SL Q5MP PRN Allergies/Adverse Reactions: ciprofloxacin [From Cipro] Allergy (Intermediate, Verified 05/30/18 19:06) Hives ciprofloxacin HCl [From Cipro] Allergy (Intermediate, Verified 05/30/18 19:06) Hives nitroglycerin [From Nitrostat IV] Allergy (Verified 05/30/18 19:06) Penicillins Allergy (Verified 05/30/18 19:06) promethazine HCl [From Phenergan] Allergy (Verified 05/30/18 19:06) Review of Systems All systems: reviewed and no additional remarkable complaints except as stated - as mentioned in HPI Physical Exam Vital Signs: Temp Pulse Resp BP Pulse Ox 98.3 F 107 H 21 H 93/50 L 99 08/31/18 12:47 08/31/18 12:47 08/31/18 12:47 08/31/18 12:47 08/31/18 12:47 General appearance: PRESENT: no acute distress, thin Head exam: PRESENT: atraumatic, normocephalic Eye exam: PRESENT: conjunctiva pink, EOMI, PERRLA. ABSENT: scleral icterus Ear exam: PRESENT: normal external ear exam Mouth exam: PRESENT: moist, tongue midline Neck exam: ABSENT: carotid bruit, JVD, lymphadenopathy, thyromegaly Respiratory exam: PRESENT: crackles - note of bibasal crakles L>R, rhonchi. ABSENT: rales, wheezes Cardiovascular exam: PRESENT: RRR. ABSENT: diastolic murmur, rubs, systolic murmur Pulses: PRESENT: normal dorsalis pedis pul GI/Abdominal exam: PRESENT: normal bowel sounds, soft. ABSENT: distended, guarding, mass, organolmegaly, rebound, tenderness Rectal exam: PRESENT: deferred Neurological exam: PRESENT: alert, awake, oriented to person, oriented to place , oriented to time, oriented to situation, CN II-XII grossly intact. ABSENT: motor sensory deficit Results Impressions: Chest X-Ray 08/31/18 13:00 IMPRESSION: Obstructive lung disease is minimal lateral left basilar airspace disease atelectasis versus pneumonia Assessment & Plan - Diagnosis (1) HCAP (healthcare-associated pneumonia) Is this a current diagnosis for this admission?: Yes Plan: Patient did have recent hospitalization within the past 90 days for COPD exacerbation and left lower lobe PNA. She is actively coughing with copious yellowish sputum. Her CXR does who left sided PNA. She has leukocytosis. Will start broad spectrum IV antibiotics for HCAP. She is currently saturating well on 3L via NC. Will also order for sputum culture. (2) Chronic respiratory failure Is this a current diagnosis for this admission?: Yes Plan: From severe COPD. Saturating well on 3L of NC. (3) COPD (chronic obstructive pulmonary disease) Is this a current diagnosis for this admission?: Yes Plan: Patient did receive breathing treatments upon presentation. Will continue breathing treatments and start low dose steroids. (4) Seizure disorder Is this a current diagnosis for this admission?: Yes Plan: Will resume phenytoin. - Time Time Spent: 30 to 50 Minutes
[2018-08-31] MEDS ORDERED: AZTREONAM 1 GM in DEXTROSE 5%-WATER 50 ML IV SCH (16:00)
[2018-08-31] MEDS: IPRATROPIUM/ALBUTEROL 0.5-2.5 MG/3 ML AMPUL NEB PRN (16:46)
[2018-08-31] MEDS ORDERED: AZTREONAM INJ 1 GM VIAL ONE (17:23)
[2018-08-31] MEDS: PREDNISONE 10 MG TABLET PO SCH (17:59)
[2018-08-31] MEDS ORDERED: (PENDING PHARMACY ID) (Ropinirole Hcl [Requip] 0.5 MG) PO SCH (18:00)
[2018-08-31] MEDS: AMITRIPTYLINE HCL 50 MG TABLET PO SCH (21:58)
[2018-08-31] MEDS: HEPARIN SOD (PORCINE) 5,000 UNIT/ML 1 ML SYRINGE SUBCUT SCH (21:59)
[2018-08-31] MEDS: ATORVASTATIN CALCIUM 10 MG TABLET PO SCH (21:59)
[2018-08-31] MEDS ORDERED: AMITRIPTYLINE HCL 200 MG PO SCH (22:00)
[2018-08-31] MEDS ORDERED: NALOXONE HCL INJ/PF 0.4 MG/1 ML SDV ONE (22:10)
[2018-08-31] MEDS ORDERED: NALOXONE HCL INJ/PF 0.4 MG/1 ML SDV IV ONE (22:30)
[2018-08-31] MEDS ORDERED: PHENYTOIN SODIUM EXTENDED 100 MG CAPSULE PO ONE (22:37)
[2018-08-31 22:38] LABS: ARTERIAL BLOOD BASE EXCESS -3.9 mmol/L; ARTERIAL BLOOD FIO2 2; ARTERIAL BLOOD H2CO3 1.07 mmol/L (1.05-1.35); ARTERIAL BLOOD HCO3 20.6 mmol/L (20-24); ARTERIAL BLOOD O2 SATURATION 95.1 % (94-98); ARTERIAL BLOOD PCO2 35.7 mmHg (35-45); ARTERIAL BLOOD PH 7.38 (7.35-7.45); ARTERIAL BLOOD PO2 75.7 mmHg (80-100); ARTERIAL BLOOD TOTAL CO2 21.7 mmol/L (21-25)
[2018-08-31] MEDS ORDERED: CEFEPIME 1 GM/D5W RTU 1 GM/50 ML RTUPB IV ONE (22:38)
[2018-08-31] MEDS ORDERED: ROPINIROLE HCL 0.25 MG TABLET ONE (22:38)
[2018-08-31] MEDS ORDERED: TOPIRAMATE 25 MG TABLET ONE ×2 (22:38→23:24)
[2018-08-31] MEDS ORDERED: FLUTICASONE/SALMETEROL DISKUS 500-50 MCG/DOSE IH ONE (22:38)
[2018-08-31] MEDS: PHENYTOIN SODIUM EXTENDED 100 MG CAPSULE PO SCH (23:19)
[2018-08-31] MEDS: ROPINIROLE HCL 0.25 MG TABLET PO SCH (23:22)
[2018-08-31] MEDS: CEFEPIME 1 GM/D5W RTU 1 GM/50 ML RTUPB IV SCH (23:23)
[2018-08-31] MEDS: FLUTICASONE/SALMETEROL DISKUS 500-50 MCG/DOSE IH SCH (23:25)
[2018-08-31] MEDS: TOPIRAMATE 25 MG TABLET PO SCH (23:26)
[2018-09-01] MEDS ORDERED: NALOXONE HCL INJ/PF 0.4 MG/1 ML SDV IV ONE (00:15)
[2018-09-01] MEDS ORDERED: HYDROCORTISONE SOD SUCCINATE INJ/PF 100 MG/2 ML SDV IV ONE (03:42)
[2018-09-01] MEDS: DOCUSATE SODIUM 100 MG CAPSULE PO SCH (09:31)
[2018-09-01] MEDS: ASPIRIN 81 MG TABLET, ENT COATED PO SCH (09:31)
[2018-09-01] MEDS: FLUTICASONE/SALMETEROL DISKUS 500-50 MCG/DOSE IH SCH ×2 (09:31→21:36)
[2018-09-01] MEDS: PREDNISONE 10 MG TABLET PO SCH ×2 (09:31→17:52)
[2018-09-01] MEDS: HEPARIN SOD (PORCINE) 5,000 UNIT/ML 1 ML SYRINGE SUBCUT SCH ×2 (09:31→21:39)
[2018-09-01] MEDS ORDERED: TIOTROPIUM BROMIDE DPI 5 CAP/KIT (18 MCG/CAP) IH SCH (10:00)
[2018-09-01] MEDS ORDERED: CITALOPRAM HYDROBROMIDE 20 MG TABLET PO SCH (10:00)
[2018-09-01] MEDS ORDERED: (PENDING PHARMACY ID) (Lovastatin [Lovastatin] 40 MG) PO SCH (10:00)
[2018-09-01] MEDS: ROPINIROLE HCL 0.25 MG TABLET PO SCH ×2 (10:27→21:40)
[2018-09-01] MEDS: CEFEPIME 1 GM/D5W RTU 1 GM/50 ML RTUPB IV SCH ×2 (10:27→21:39)
[2018-09-01] MEDS: IPRATROPIUM/ALBUTEROL 0.5-2.5 MG/3 ML AMPUL NEB PRN (11:05)
[2018-09-01] MEDS: TOPIRAMATE 25 MG TABLET PO SCH ×2 (11:05→21:41)
[2018-09-01] MEDS ORDERED: NORMAL SALINE 1000 ML 1,000 ML IV PRN (13:44)
--- NOTE | 2018-09-01 13:53 | PDOC PROGRESS REPORT ---
Subjective Progress Note for:: 09/01/18 Subjective:: Ms. 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 She was found to have a left sided pneumonia and was admitted for HCAP. Overnight, patient became lethargic. She takes opiates at home but did not get any last night. She was given a dose of Narcan and she immediately became more alert. This morning, patient says she did not remember what happened last night. She continues to have productive cough but says she feels a little better today. She denies worsening of her SOB. No fever or chills. Reason For Visit: HCAP Physical Exam Vital Signs: Temp Pulse Resp BP Pulse Ox 97.3 F 88 20 97/44 L 100 09/01/18 11:29 09/01/18 11:29 09/01/18 11:29 09/01/18 11:29 09/01/18 11:29 Intake & Output 08/31/18 09/01/18 09/02/18 06:59 06:59 06:59 Intake Total 1150 287 Output Total 0 Balance 1150 287 Weight 83 lb 5.356 oz General appearance: PRESENT: no acute distress, thin Head exam: PRESENT: atraumatic, normocephalic Eye exam: PRESENT: conjunctiva pink, EOMI, PERRLA. ABSENT: scleral icterus Ear exam: PRESENT: normal external ear exam Mouth exam: PRESENT: moist, tongue midline Neck exam: ABSENT: carotid bruit, JVD, lymphadenopathy, thyromegaly Respiratory exam: PRESENT: crackles. ABSENT: rales, rhonchi, wheezes Cardiovascular exam: PRESENT: RRR. ABSENT: diastolic murmur, rubs, systolic murmur Pulses: PRESENT: normal dorsalis pedis pul GI/Abdominal exam: PRESENT: normal bowel sounds, soft. ABSENT: distended, guarding, mass, organolmegaly, rebound, tenderness Rectal exam: PRESENT: deferred Neurological exam: PRESENT: alert, awake, oriented to person, oriented to place , oriented to time, oriented to situation, CN II-XII grossly intact. ABSENT: motor sensory deficit Psychiatric exam: PRESENT: appropriate affect, normal mood. ABSENT: homicidal ideation, suicidal ideation Results Laboratory Results: 08/31/18 09/01/18 22:15 04:05 Carbonic Acid 1.07 HCO3/H2CO3 Ratio 19:1 ABG pH 7.38 ABG pCO2 35.7 ABG pO2 75.7 L ABG HCO3 20.6 ABG O2 Saturation 95.1 ABG Base Excess -3.9 FiO2 2 TSH 0.92 Impressions: Chest X-Ray 08/31/18 13:00 IMPRESSION: Obstructive lung disease is minimal lateral left basilar airspace disease atelectasis versus pneumonia Assessment & Plan - Diagnosis (1) HCAP (healthcare-associated pneumonia) Is this a current diagnosis for this admission?: Yes Plan: Patient did have recent hospitalization within the past 90 days for COPD exacerbation and left lower lobe PNA. She is actively coughing with copious yellowish sputum. Her CXR does show left sided PNA. She had leukocytosis. Continue broad spectrum antibiotics for now. She is currently saturating well on 3L via NC. Blood culture negative so far. Sputum culture pending. (2) Chronic respiratory failure Is this a current diagnosis for this admission?: Yes Plan: From severe COPD. Saturating well on 3L of NC. (3) COPD (chronic obstructive pulmonary disease) Is this a current diagnosis for this admission?: Yes Plan: Continue PO steroids and breathing treatments. (4) Seizure disorder Is this a current diagnosis for this admission?: Yes Plan: Continue phenytoin. (5) Protein calorie malnutrition Qualifiers: Protein-calorie malnutrition severity: severe Qualified Code(s): E43 - Unspecified severe protein-calorie malnutrition Is this a current diagnosis for this admission?: Yes Plan: Will consult dietitian for further recommendations. - Time Time Spent with patient: 15-24 minutes
[2018-09-01] MEDS: ATORVASTATIN CALCIUM 10 MG TABLET PO SCH (21:38)
[2018-09-01] MEDS: PHENYTOIN SODIUM EXTENDED 100 MG CAPSULE PO SCH (21:38)
[2018-09-01] MEDS: AMITRIPTYLINE HCL 50 MG TABLET PO SCH (21:39)
[2018-09-02 05:43] LABS: ANION GAP 11 (5-19); BLOOD UREA NITROGEN 14 mg/dL (7-20); CALCIUM 9.1 mg/dL (8.4-10.2); CARBON DIOXIDE 23 mmol/L (22-30); CHLORIDE 106 mmol/L (98-107); GLUCOSE 94 mg/dL (75-110); POTASSIUM 3.8 mmol/L (3.6-5.0); SODIUM 139.5 mmol/L (137-145)
[2018-09-02] MEDS: IPRATROPIUM/ALBUTEROL 0.5-2.5 MG/3 ML AMPUL NEB PRN (09:03)
[2018-09-02] MEDS: FLUTICASONE/SALMETEROL DISKUS 500-50 MCG/DOSE IH SCH ×2 (09:40→22:29)
[2018-09-02] MEDS: HEPARIN SOD (PORCINE) 5,000 UNIT/ML 1 ML SYRINGE SUBCUT SCH ×2 (09:41→22:31)
[2018-09-02] MEDS: CEFEPIME 1 GM/D5W RTU 1 GM/50 ML RTUPB IV SCH ×2 (09:42→22:36)
[2018-09-02] MEDS: ASPIRIN 81 MG TABLET, ENT COATED PO SCH (09:43)
[2018-09-02] MEDS: ROPINIROLE HCL 0.25 MG TABLET PO SCH ×2 (09:43→22:32)
[2018-09-02] MEDS: PREDNISONE 10 MG TABLET PO SCH ×2 (09:43→17:31)
[2018-09-02] MEDS: DOCUSATE SODIUM 100 MG CAPSULE PO SCH (09:43)
[2018-09-02] MEDS: TOPIRAMATE 25 MG TABLET PO SCH ×2 (09:43→22:32)
--- NOTE | 2018-09-02 10:50 | PDOC PROGRESS REPORT ---
Subjective Progress Note for:: 09/02/18 Subjective:: Ms. 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 She was found to have a left sided pneumonia and was admitted for HCAP. No acute event overnight. No recurrence of lethargy or confusion. Patient continues to have a lot of productive cough with yellowish-greenish sputum. She says she still feels weak but feels her breathing is better compared to when she came in. No fever or chills. Reason For Visit: HCAP Physical Exam Vital Signs: Temp Pulse Resp BP Pulse Ox 97.5 F 81 20 109/61 92 09/02/18 08:21 09/02/18 08:59 09/02/18 08:59 09/02/18 08:21 09/02/18 08:59 Intake & Output 09/01/18 09/02/18 09/03/18 06:59 06:59 06:59 Intake Total 1150 814 Output Total 0 0 Balance 1150 814 Weight 83 lb 5.356 oz 86 lb 6.739 oz General appearance: PRESENT: no acute distress, thin Head exam: PRESENT: atraumatic, normocephalic Eye exam: PRESENT: conjunctiva pink, EOMI, PERRLA. ABSENT: scleral icterus Ear exam: PRESENT: normal external ear exam Mouth exam: PRESENT: moist, tongue midline Neck exam: ABSENT: carotid bruit, JVD, lymphadenopathy, thyromegaly Respiratory exam: PRESENT: crackles - on the right base, improved from yesterday , rhonchi Cardiovascular exam: PRESENT: RRR. ABSENT: diastolic murmur, rubs, systolic murmur Pulses: PRESENT: normal dorsalis pedis pul GI/Abdominal exam: PRESENT: normal bowel sounds, soft. ABSENT: distended, guarding, mass, organolmegaly, rebound, tenderness Rectal exam: PRESENT: deferred Neurological exam: PRESENT: alert, awake, oriented to person, oriented to place , oriented to time, oriented to situation, CN II-XII grossly intact. ABSENT: motor sensory deficit Results Laboratory Results: 09/02/18 04:38 09/02/18 04:38 Sodium 139.5 Potassium 3.8 Chloride 106 Carbon Dioxide 23 Anion Gap 11 BUN 14 Creatinine 0.60 Est GFR ( Amer) > 60 Est GFR (Non-Af Amer) > 60 Glucose 94 Calcium 9.1 Impressions: Chest X-Ray 08/31/18 13:00 IMPRESSION: Obstructive lung disease is minimal lateral left basilar airspace disease atelectasis versus pneumonia Assessment & Plan - Diagnosis (1) HCAP (healthcare-associated pneumonia) Is this a current diagnosis for this admission?: Yes Plan: Improving. Patient did have recent hospitalization within the past 90 days for COPD exacerbation and left lower lobe PNA. She is actively coughing with copious yellowish sputum. Her CXR does show left sided PNA. She had leukocytosis. Continue broad spectrum antibiotics for now. She is currently saturating well on 3L via NC. Blood culture negative so far. Sputum culture still pending. (2) Chronic respiratory failure Is this a current diagnosis for this admission?: Yes Plan: From severe COPD. Saturating well on 3L of NC. (3) COPD (chronic obstructive pulmonary disease) Is this a current diagnosis for this admission?: Yes Plan: Continue PO steroids and breathing treatments. (4) Seizure disorder Is this a current diagnosis for this admission?: Yes Plan: Continue phenytoin. (5) Protein calorie malnutrition Qualifiers: Protein-calorie malnutrition severity: severe Qualified Code(s): E43 - Unspecified severe protein-calorie malnutrition Is this a current diagnosis for this admission?: Yes Plan: Will consult dietitian for further recommendations. - Time Time Spent with patient: 15-24 minutes
[2018-09-02] MEDS ORDERED: VANCOMYCIN HCL 750 MG in DEXTROSE 5%-WATER 250 ML IV SCH (14:00)
[2018-09-02] MEDS ORDERED: VANCOMYCIN HCL 500 MG in DEXTROSE 5%-WATER 100 ML IV SCH (15:00)
[2018-09-02] MEDS: PHENYTOIN SODIUM EXTENDED 100 MG CAPSULE PO SCH (22:29)
[2018-09-02] MEDS: ATORVASTATIN CALCIUM 10 MG TABLET PO SCH (22:30)
[2018-09-02] MEDS: AMITRIPTYLINE HCL 50 MG TABLET PO SCH (22:31)
[2018-09-03] MEDS: ASPIRIN 81 MG TABLET, ENT COATED PO SCH (09:31)
[2018-09-03] MEDS: DOCUSATE SODIUM 100 MG CAPSULE PO SCH (09:31)
[2018-09-03] MEDS: ROPINIROLE HCL 0.25 MG TABLET PO SCH ×2 (09:32→22:55)
[2018-09-03] MEDS: HEPARIN SOD (PORCINE) 5,000 UNIT/ML 1 ML SYRINGE SUBCUT SCH ×2 (09:32→22:56)
[2018-09-03] MEDS: TOPIRAMATE 25 MG TABLET PO SCH ×2 (09:32→22:55)
[2018-09-03] MEDS: FLUTICASONE/SALMETEROL DISKUS 500-50 MCG/DOSE IH SCH ×2 (09:33→22:50)
[2018-09-03] MEDS: CEFUROXIME 250 MG TABLET PO SCH ×2 (09:50→16:31)
[2018-09-03] MEDS: TIOTROPIUM BROMIDE DPI 5 CAP/KIT (18 MCG/CAP) IH SCH (09:50)
[2018-09-03] MEDS: ACETYLCYSTEINE 20% SOLN 800 MG/4 ML VIAL.NEB NEB SCH ×2 (10:38→20:08)
[2018-09-03] MEDS: ALBUTEROL SULFATE 0.083% NEB 2.5 MG/3 ML AMPUL NEB PRN ×2 (10:39→20:09)
[2018-09-03 11:49] LABS: ALANINE AMINOTRANSFERASE 18 U/L (9-52); ALBUMIN 3.1 g/dL (3.5-5.0); ALKALINE PHOSPHATASE 103 U/L (38-126); ASPARTATE AMINO TRANSFERASE 23 U/L (14-36); BILIRUBIN,DIRECT 0.1 mg/dL (0.0-0.4); BILIRUBIN,TOTAL 0.1 mg/dL (0.2-1.3); BLOOD UREA NITROGEN 10 mg/dL (7-20); CALCIUM 9.1 mg/dL (8.4-10.2); CHLORIDE 102 mmol/L (98-107); GLUCOSE 138 mg/dL (75-110); POTASSIUM 3.7 mmol/L (3.6-5.0)
[2018-09-03 11:54] LABS: ANION GAP 11 (5-19); CARBON DIOXIDE 28 mmol/L (22-30)
--- NOTE | 2018-09-03 15:51 | PDOC PROGRESS REPORT ---
Subjective Progress Note for:: 09/03/18 Subjective:: LEILANI HERNÁNDEZ is a 78 year old female who presented with a one-week history of a progressively worsening (severe on admission) harsh productive cough with thick yellow sputum. Cough is associated with a subjective fever without chills or increase in her level of chronic dyspnea. She relates that she was hospitalized approximately 3 months prior to this admission for treatment of an exacerbation of her COPD and a left lower pneumonia. She adds that her close hospitalized for an acute bronchitis and discharged approximately 1 week ago. In the interim since admission she has improved significantly with a progressive decrease in her cough frequency and harshness. With therapy including steroids, nebulizers and antibiotics. 09/03/2018: Leilani today states she feels pretty well and would like to know when she might be getting to go home. Her cough is very well controlled and she no longer has any sensation of fever. She has a good appetite and is consuming plenty of fluids and nutrition. She is tolerating normal activities in her room quite well and is eager to return to her home. We have discussed her therapy and we will initiate conversion to oral and home use therapeutics today and plan a discharge tomorrow if she continues to do well. Reason For Visit: HCAP Physical Exam Vital Signs: Temp Pulse Resp BP Pulse Ox 97.5 F 89 15 111/51 L 97 09/03/18 11:38 09/03/18 11:38 09/03/18 11:38 09/03/18 11:38 09/03/18 11:38 Intake & Output 09/01/18 09/02/18 09/03/18 23:59 23:59 23:59 Intake Total 287 1252 474 Output Total 900 Balance 287 352 474 Weight 39.2 kg 38.9 kg General appearance: PRESENT: no acute distress, cooperative Head exam: PRESENT: atraumatic, normocephalic Eye exam: ABSENT: conjunctival injection, scleral icterus Ear exam: PRESENT: normal external ear exam. ABSENT: drainage Mouth exam: PRESENT: neck supple, tongue midline Neck exam: ABSENT: JVD, thyromegaly, tracheal deviation Respiratory exam: PRESENT: clear to auscultation erum, symmetrical, unlabored Cardiovascular exam: PRESENT: RRR. ABSENT: clicks, gallop, rubs Vascular exam: PRESENT: normal capillary refill. ABSENT: pallor GI/Abdominal exam: PRESENT: normal bowel sounds, soft Rectal exam: PRESENT: deferred Extremities exam: ABSENT: joint swelling, pedal edema Musculoskeletal exam: ABSENT: deformity, dislocation Neurological exam: PRESENT: alert, oriented to person, oriented to place, oriented to time, oriented to situation, CN II-XII grossly intact. ABSENT: motor sensory deficit Psychiatric exam: PRESENT: appropriate affect, normal mood Skin exam: PRESENT: dry, intact, warm. ABSENT: jaundice, rash, urticaria Results Laboratory Results: 09/03/18 10:38 09/03/18 10:38 Sodium 141.0 Potassium 3.7 Chloride 102 Carbon Dioxide 28 Anion Gap 11 BUN 10 Creatinine 0.55 Est GFR ( Amer) > 60 Est GFR (Non-Af Amer) > 60 Glucose 138 H Calcium 9.1 Total Bilirubin 0.1 L AST 23 ALT 18 Alkaline Phosphatase 103 Total Protein 6.0 L Albumin 3.1 L Impressions: Chest X-Ray 08/31/18 13:00 IMPRESSION: Obstructive lung disease is minimal lateral left basilar airspace disease atelectasis versus pneumonia Assessment & Plan - Diagnosis (1) Acute on chronic respiratory failure with hypoxemia Is this a current diagnosis for this admission?: Yes Plan: Patient has been treated with steroids, empiric antibiotics and an aggressive pulmonary toilet which will be continued but modified for home use. (2) COPD exacerbation Is this a current diagnosis for this admission?: Yes Plan: Patient will be continued on empiric antibiotic therapy as well as bronchodilators and steroids, but converted to oral/home medications. Initial chest x-ray was read as possible left lower lobe pneumonia or atelectasis with only minimal findings and the patient's clinical course would certainly suggest an atelectasis associated with bronchitis rather than a pneumonia. If patient does well on her conversion to oral/home meds she will be discharged tomorrow. 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 (4) Seizure disorder Is this a current diagnosis for this admission?: Yes Plan: Patient will be maintained on her prehospitalization anticonvulsant regimen. (5) CAD (coronary artery disease) Qualifiers: Coronary Disease-Associated Artery/Lesion type: [place] artery [place] vs. transplanted heart: [place] heart Associated angina: angina presence unspecified Qualified Code(s): I25.10 - Atherosclerotic heart disease of [place] coronary artery without angina pectoris Is this a current diagnosis for this admission?: Yes Plan: Patient will be maintained on her prehospitalization cardiac regiment. (6) Chronic constipation Is this a current diagnosis for this admission?: Yes Plan: Patient will maintain her prehospitalization chronic constipation regimen. (7) Chronic pain Qualifiers: Chronic pain type: other chronic pain Qualified Code(s): G89.29 - Other chronic pain Is this a current diagnosis for this admission?: Yes Plan: Patient will be maintained on her prehospitalization chronic pain regimen. (8) GERD (gastroesophageal reflux disease) Qualifiers: Esophagitis presence: without esophagitis Qualified Code(s): K21.9 - Gastro -esophageal reflux disease without esophagitis Is this a current diagnosis for this admission?: Yes Plan: The patient will be maintained on her prehospitalization gastroesophageal reflux disease protocol after discharge. (9) Hyperlipidemia Qualifiers: Hyperlipidemia type: unspecified Qualified Code(s): E78.5 - Hyperlipidemia , unspecified Is this a current diagnosis for this admission?: Yes Plan: Patient will be restarted on her usual statin agent upon discharge. - Time Time Spent with patient: Less than 15 minutes Medications reviewed and adjusted accordingly: Yes Anticipated discharge: Home Within: within 24 hours
[2018-09-03] MEDS ORDERED: MONTELUKAST SODIUM 10 MG TABLET PO SCH (22:00)
[2018-09-03] MEDS: ATORVASTATIN CALCIUM 10 MG TABLET PO SCH (22:55)
[2018-09-03] MEDS: AMITRIPTYLINE HCL 50 MG TABLET PO SCH (22:55)
[2018-09-03] MEDS: PHENYTOIN SODIUM EXTENDED 100 MG CAPSULE PO SCH (22:55)
[2018-09-04 05:17] LABS: ABSOLUTE LYMPHOCYTES (AUTO) 1.3 10^3/uL (0.5-4.7); ABSOLUTE MONOCYTES (AUTO) 0.7 10^3/uL (0.1-1.4); ABSOLUTE NEUT (AUTO) 3.6 10^3/uL (1.7-8.2); BASOPHILS % (AUTO) 0.4 % (0-2); EOSINOPHILS % (AUTO) 0.3 % (0-6); HEMATOCRIT 29.4 % (36.0-47.0); MEAN CORPUSCULAR HEMOGLOBIN 31.8 pg (27.0-33.4); MEAN CORPUSCULAR VOLUME 93 fl (80-97); MONOCYTES % (AUTO) 13.2 % (3-13); PLATELET COUNT 293 10^3/uL (150-450); RED BLOOD COUNT 3.15 10^6/uL (3.72-5.28); SEGMENTED NEUTROPHILS % (AUTO) 63.1 % (42-78); TOTAL CELLS COUNTED % (AUTO) 100 %; WHITE BLOOD COUNT 5.7 10^3/uL (4.0-10.5)
[2018-09-04] MEDS: ALBUTEROL SULFATE 0.083% NEB 2.5 MG/3 ML AMPUL NEB PRN (07:54)
[2018-09-04] MEDS: ACETYLCYSTEINE 20% SOLN 800 MG/4 ML VIAL.NEB NEB SCH (07:54)
[2018-09-04] MEDS: ASPIRIN 81 MG TABLET, ENT COATED PO SCH (09:05)
[2018-09-04] MEDS: CEFUROXIME 250 MG TABLET PO SCH (09:05)
[2018-09-04] MEDS: ROPINIROLE HCL 0.25 MG TABLET PO SCH (09:05)
[2018-09-04] MEDS: TOPIRAMATE 25 MG TABLET PO SCH (09:06)
[2018-09-04] MEDS: DOCUSATE SODIUM 100 MG CAPSULE PO SCH (09:07)
[2018-09-04] MEDS: HEPARIN SOD (PORCINE) 5,000 UNIT/ML 1 ML SYRINGE SUBCUT SCH (09:07)
[2018-09-04] MEDS: TIOTROPIUM BROMIDE DPI 5 CAP/KIT (18 MCG/CAP) IH SCH (09:08)
[2018-09-04] MEDS: FLUTICASONE/SALMETEROL DISKUS 500-50 MCG/DOSE IH SCH (09:08)
[2018-09-04 12:26] VITALS: BP 105/59
--- NOTE | 2018-09-04 15:45 | PDOC DISCHARGE SUMMARY ---
General - Admit/Disc Date/PCP Admission Date/Primary Care Provider: 09/01/18 14:44 WILEY FRANKLIN MD Discharge Date: 09/04/18 - Discharge Diagnosis (1) Acute on chronic respiratory failure with hypoxemia Is this a current diagnosis for this admission?: Yes Summary: Patient has been treated with steroids, empiric antibiotics and an aggressive pulmonary toilet which will be continued but modified for home use. (2) COPD exacerbation Is this a current diagnosis for this admission?: Yes Summary: 09/03/2018: Patient will be continued on empiric antibiotic therapy as well as bronchodilators and steroids, but converted to oral/home medications. Initial chest x-ray was read as possible left lower lobe pneumonia or atelectasis with only minimal findings and the patient's clinical course would certainly suggest an atelectasis associated with bronchitis rather than a pneumonia. If patient does well on her conversion to oral/home meds she will be discharged tomorrow. (3) Protein calorie malnutrition Is this a current diagnosis for this admission?: Yes Summary: A body man consultation will be obtained with emphasis in asking for dietary supplementation to increase the patient's caloric intake to improve her BMI by increasing her weight. (4) Seizure disorder Is this a current diagnosis for this admission?: Yes Summary: Patient will be maintained on an oral Keppra anticonvulsant regimen until she is able to be evaluated more thoroughly on an outpatient basis. (5) CAD (coronary artery disease) Is this a current diagnosis for this admission?: Yes Summary: Patient will be maintained on her prehospitalization cardiac regiment. (6) Chronic constipation Is this a current diagnosis for this admission?: Yes Summary: Patient will maintain her prehospitalization chronic constipation regimen. (7) Chronic pain Is this a current diagnosis for this admission?: Yes Summary: Patient will be maintained on her prehospitalization chronic pain regimen. (8) GERD (gastroesophageal reflux disease) Is this a current diagnosis for this admission?: Yes Summary: The patient will be maintained on her prehospitalization gastroesophageal reflux disease protocol after discharge. (9) Hyperlipidemia Is this a current diagnosis for this admission?: Yes Summary: Patient will be restarted on her usual statin agent upon discharge. - Additional Information Resuscitation Status: Full Code Discharge Diet: As Tolerated, Regular, Other (Comments) Discharge Activity: Activity As Tolerated, Balance Activity w/Rest Prescriptions: Albuterol Sulfate [Ventolin 0.083% Neb 2.5 mg/3 mL Ampul] 2.5 mg NEB Q4HWA 30 Days #150 vial.neb Amitriptyline HCl [Elavil 100 mg Tablet] 200 mg PO QHS 30 Days #60 tablet Aspirin [Ecotrin 81 mg EC Tablet] 81 mg PO DAILY 30 Days #30 tabec Cefuroxime Axetil [Ceftin 250 mg Tablet] 250 mg PO BIDBS 7 Days #14 tablet Docusate Sodium [Colace 100 mg Capsule] 100 mg PO DAILY 30 Days #30 capsule Tiotropium [place] [Spiriva Handihaler 5 Cap/Kit (18 Mcg/Cap)] 1 cap IH DAILY 30 Days #30 cap Home Medications: Albuterol Sulfate [Ventolin HFA MDI 18 GM] 1 puff IH Q6HP PRN 05/31/18 Fluticasone/Salmeterol [Advair 500-50 Diskus 28 Dose] 1 inh IH Q12 05/31/18 Lovastatin 40 mg PO DAILY 05/31/18 Phenytoin Sodium Extended [Dilantin] 200 mg PO QHS 05/31/18 Ropinirole HCl [Requip] 0.5 mg PO BID 05/31/18 Topiramate [Topamax] 50 mg PO Q12 05/31/18 Nitroglycerin [Nitrostat 0.4 mg (1/150 Gr) Tabs 25/Bottle] 1 tab SL Q5MP PRN Albuterol Sulfate [Ventolin 0.083% Neb 2.5 mg/3 mL Ampul] 2.5 mg NEB Q4HWA 30 Days #150 vial.neb 09/04/18 Amitriptyline HCl [Elavil 100 mg Tablet] 200 mg PO QHS 30 Days #60 tablet Aspirin [Ecotrin 81 mg EC Tablet] 81 mg PO DAILY 30 Days #30 tabec 09/04/18 Cefuroxime Axetil [Ceftin 250 mg Tablet] 250 mg PO BIDBS 7 Days #14 tablet 09/04 Docusate Sodium [Colace 100 mg Capsule] 100 mg PO DAILY 30 Days #30 capsule Tiotropium [place] [Spiriva Handihaler 5 Cap/Kit (18 Mcg/Cap)] 1 cap IH DAILY 30 Days #30 cap 09/04/18 History of Present Illness Patient complains of: Worsening cough History of Present Illness: LEILANI HERNÁNDEZ is a 78 year old female who presented with a one-week history of a progressively worsening (severe on admission) harsh productive cough with thick yellow sputum. Cough is associated with a subjective fever without chills or increase in her level of chronic dyspnea. She relates that she was hospitalized approximately 3 months prior to this admission for treatment of an exacerbation of her COPD and a left lower pneumonia. She adds that her close hospitalized for an acute bronchitis and discharged approximately 1 week ago. Hospital Course Hospital Course: In the interim since admission she has improved significantly with a progressive decrease in her cough frequency and harshness. With therapy including steroids, nebulizers and antibiotics. 09/03/2018: Leilani today states she feels pretty well and would like to know when she might be getting to go home. Her cough is very well controlled and she no longer has any sensation of fever. She has a good appetite and is consuming plenty of fluids and nutrition. She is tolerating normal activities in her room quite well and is eager to return to her home. We have discussed her therapy and we will initiate conversion to oral and home use therapeutics today and plan a discharge tomorrow if she continues to do we Physical Exam Vital Signs: Temp Pulse Resp BP Pulse Ox 98.0 F 85 19 106/52 L 93 09/04/18 11:44 09/04/18 11:44 09/04/18 11:44 09/04/18 11:44 09/04/18 11:44 Intake & Output 09/02/18 09/03/18 09/04/18 23:59 23:59 23:59 Intake Total 1252 948 240 Output Total 900 Balance 352 948 240 Weight 39.2 kg 38.9 kg 40.1 kg General appearance: PRESENT: no acute distress, cooperative, thin Head exam: PRESENT: atraumatic, normocephalic Eye exam: PRESENT: conjunctiva pink, EOMI Ear exam: PRESENT: normal external ear exam Neck exam: ABSENT: JVD, tracheal deviation Respiratory exam: PRESENT: clear to auscultation erum, decreased breath sounds - Moderately decreased breath sounds throughout all warner consistent with moderate to severe COPD., symmetrical, unlabored Cardiovascular exam: PRESENT: RRR. ABSENT: clicks, gallop, rubs Vascular exam: PRESENT: normal capillary refill. ABSENT: pallor GI/Abdominal exam: PRESENT: normal bowel sounds, soft - [id number] Rectal exam: PRESENT: deferred Extremities exam: ABSENT: joint swelling, pedal edema Musculoskeletal exam: ABSENT: deformity, dislocation Neurological exam: PRESENT: alert, oriented to person, oriented to place, oriented to time, oriented to situation Psychiatric exam: PRESENT: appropriate affect, normal mood Skin exam: ABSENT: jaundice, rash, urticaria Results Laboratory Results: 09/04/18 04:38 09/03/18 10:38 09/04/18 09/04/18 04:38 04:38 WBC 5.7 RBC 3.15 L Hgb 10.0 L Hct 29.4 L MCV 93 MCH 31.8 MCHC 34.0 RDW 14.0 Plt Count 293 Seg Neutrophils % 63.1 Lymphocytes % 23.0 Monocytes % 13.2 H Eosinophils % 0.3 Basophils % 0.4 Absolute Neutrophils 3.6 Absolute Lymphocytes 1.3 Absolute Monocytes 0.7 Absolute Eosinophils 0.0 Absolute Basophils 0.0 Magnesium 1.8 Impressions: Chest X-Ray 08/31/18 13:00 IMPRESSION: Obstructive lung disease is minimal lateral left basilar airspace disease atelectasis versus pneumonia Qualifiers - * PATIENT BEING DISCHARGED WITH ANY OF THE FOLLOWING DIAGNOSIS: No Plan Discharge Plan: Discharged home in improved and stable condition with home health senior care, physical therapy and aide/homemaker service. Time Spent: Greater than 30 Minutes
== END 2018-09-04 13:04 | disposition home health service (06) | DRG 193 ==
LOC: ER 12:38 → INTOOBSV 14:31 → EH 14:31 → 3W 16:10 → OBSVTOIN 09-01 14:44
PROVIDERS: ADMIT Internal Medicine; ATTEND Internal Medicine
PROC: 3E0F73Z Introduction of Anti-inflammatory into Respiratory Tract, Via Natural or Artificial Opening (ICD-10-PCS; principal; 2018-08-31)
DX: J18.1 Lobar pneumonia, unspecified organism (principal); J96.21 Acute and chronic respiratory failure with hypoxia; E43 Unspecified severe protein-calorie malnutrition; J44.1 Chronic obstructive pulmonary disease with (acute) exacerbation; J44.0 Chronic obstructive pulmonary disease with (acute) lower respiratory infection; Z68.1 Body mass index [BMI] 19.9 or less, adult; G40.909 Epilepsy, unspecified, not intractable, without status epilepticus; I25.10 Atherosclerotic heart disease of native coronary artery without angina pectoris; K59.09 Other constipation; G89.29 Other chronic pain; K21.9 Gastro-esophageal reflux disease without esophagitis; E78.00 Pure hypercholesterolemia, unspecified; I10 Essential (primary) hypertension; E11.51 Type 2 diabetes mellitus with diabetic peripheral angiopathy without gangrene; F17.210 Nicotine dependence, cigarettes, uncomplicated; I25.2 Old myocardial infarction; Z79.899 Other long term (current) drug therapy; Z99.81 Dependence on supplemental oxygen; Z86.73 Personal history of transient ischemic attack (TIA), and cerebral infarction without residual deficits; Z90.49 Acquired absence of other specified parts of digestive tract; Z90.710 Acquired absence of both cervix and uterus; Z88.3 Allergy status to other anti-infective agents; Z88.0 Allergy status to penicillin; Z88.8 Allergy status to other drugs, medicaments and biological substances
CPT/HCPCS: 36415; 36600; 71045; 80048; 80053; 82533; 82803; 82962; 83605; 83735; 84443; 85025; 87040; 87070; 87077; 87186; 87205; 87804; 99285; G0378; J0692; J1644; J1720; J2310; J2930; J3370; J3475; J3490; J7030; J7060; J7512; J7620

== ENCOUNTER 2019-06-12 19:56 | Emergency (ER) | payer MEDICARE, MEDICAID ==
[2019-06-12] MEDS ORDERED: LORAZEPAM INJ 2 MG/1 ML VIAL IV ONE (20:05)
--- NOTE | 2019-06-12 20:13 | ER Document Report ---
ED General - General Chief Complaint: Shortness Of Breath Stated Complaint: DIFFCULTY BREATHING Time Seen by Provider: 06/12/19 20:00 Primary Care Provider: WILEY FRANKLIN MD [Primary Care Provider] - Follow up as needed Notes: Patient is a pleasant 79-year-old female who with a history of COPD presents with complaint of difficulty breathing and some anxiety. Patient says she is anxious and coming her cane. She is a COPD patient and does still smoke cigarettes. She denies any recent fevers. She does have some difficulty breathing and start doing breathing treatments at home. She called ambulance. A months came and gave her Solu-Medrol as well as a DuoNeb treatment which she is currently finishing. No vomiting. No chest pain. No other complaints at this time. TRAVEL OUTSIDE OF THE [place] IN LAST 30 DAYS: No - Related Data Allergies/Adverse Reactions: ciprofloxacin [From Cipro] Allergy (Intermediate, Verified 05/30/18 19:06) Hives nitroglycerin [From Nitrostat IV] Allergy (Verified 05/30/18 19:06) Penicillins Allergy (Verified 05/30/18 19:06) promethazine HCl [From Phenergan] Allergy (Verified 05/30/18 19:06) Past Medical History - Social History Smoking Status: Current Every Day Smoker Frequency of alcohol use: None Drug Abuse: None Family History: Reviewed & Not Pertinent - Past Medical History Cardiac Medical History: Reports: Hx Coronary Artery Disease, Hx Heart Attack, Hx Hypercholesterolemia, Hx Hypertension, Hx Peripheral Vascular Disease Pulmonary Medical History: Reports: Hx Asthma, Hx Bronchitis, Hx COPD, Hx Respiratory Failure Neurological Medical History: Reports: Hx Cerebrovascular Accident - x3, Hx Seizures Endocrine Medical History: Reports: Hx Diabetes Mellitus Type 2 Renal/ Medical History: Denies: Hx Peritoneal Dialysis GI Medical History: Denies: Hx Hepatitis, Hx Hiatal Hernia, Hx Ulcer Musculoskeletal Medical History: Denies Hx Arthritis Skin Medical History: Denies Hx Eczema, Denies Hx Psoriasis Psychiatric Medical History: Denies: Hx Depression Infectious Medical History: Denies: Hx Hepatitis Past Surgical History: Reports: Hx Cardiac Catheterization - x3, Hx Cholecystectomy, Hx Hysterectomy, Hx Kidney (Renal Surgery) - Bladder lift. Denies: Hx Mastectomy, Hx Open Heart Surgery, Hx Pacemaker - Immunizations Hx Diphtheria, Pertussis, Tetanus Vaccination: Yes Hx Pneumococcal Vaccination: 10/08/08 Review of Systems - Review of Systems Notes: My Normal Review Basic REVIEW OF SYSTEMS: CONSTITUTIONAL : Denies fever, chills, or sweats. Denies recent illness. EENT: Denies eye, ear, throat, or mouth pain or symptoms. Denies nasal or sinus congestion. CARDIOVASCULAR: Denies chest pain. RESPIRATORY: Difficulty breathing GASTROINTESTINAL: Denies abdominal pain. Denies nausea, vomiting, or diarrhea. MUSCULOSKELETAL: Denies neck or back pain or joint pain or swelling. SKIN: Denies rash or skin lesions. NEUROLOGICAL: Denies altered mental status or loss of consciousness. Denies headache. Denies weakness or paralysis or loss of use of either side. Denies problems with gait or speech. Denies sensory or motor loss. PSYCHIATRIC: Anxiety ALL OTHER SYSTEMS REVIEWED AND NEGATIVE. Physical Exam - Vital signs Vitals: Temp Pulse Resp BP 98.2 F 101 H 27 H 144/105 H 06/12/19 19:57 06/12/19 19:57 06/12/19 19:57 06/12/19 19:57 - Notes Notes: General Appearance: Well nourished, alert, cooperative, mild acute distress, no obvious discomfort. Vitals: reviewed, See vital signs table. Head: no swelling or tenderness to the head Eyes: PERRL, EOMI, Conjuctiva clear Mouth: No decreasd moisture Lungs: Scattered wheezing and rhonchi. Fair air exchange. Heart: Normal rate, Regular rythm, No murmur, no rub Abdomen: Normal BS, soft, No rigidity, No abdominal tenderness, No guarding, no rebound, no abdominal masses, no organomegaly Extremities: good pulses in all extremities, no swelling or tenderness in the extremities, no edema. Skin: warm, dry, appropriate color, no rash Neuro: speech clear, oriented x 3, normal affect, responds appropriately to questions. psychiatric: Anxious on exam. Course - Re-evaluation Re-evalutation: 06/12/19 20:54 On reevaluation patient is looking much improved. After the Ativan she is much more calm and now has no increased work of breathing and looks very well. She has just a few scattered coarse breath sounds. I will give her 1 more breathing treatment and reassess her. She currently has no chest pain and looks well. 06/12/19 21:33 On reevaluation patient is feeling much improved. Her lung sounds are very good. She has no increased work of breathing. She says that she feels better. She looks well. I think a lot of her exacerbation is related to anxiety. After the Ativan her anxiety went away and she looks well. She currently denies any chest pain. EKG does not show any concerning findings. Her troponin is negative. Her venous blood gas is normal. I feel she safe to be discharged home. I strongly encouraged her to return to ER if she has recurrent difficulty breathing, fevers, or feels unwell. She says she does have her nebulizer machine at home. She says she does feel comfortable going home at this time. Patient's is at bedside and agrees with plan. Dictation of this chart was performed using voice recognition software; therefore, there may be some unintended grammatical errors. - Vital Signs Vital signs: Temp Pulse Resp BP Pulse Ox 98.2 F 101 H 36 H 117/85 91 L 06/12/19 19:57 06/12/19 19:57 06/12/19 20:12 06/12/19 20:12 06/12/19 20:12 - Laboratory Result Diagrams: 06/12/19 20:25 06/12/19 20:25 Laboratory results interpreted by me: 06/12/19 06/12/19 20:25 20:25 RBC 3.61 L Hgb 11.2 L Hct 33.8 L Glucose 127 H - EKG Interpretation by Me Additional EKG results interpreted by me: 06/12/19 20:13 EKG is reviewed and interpreted by me. EKG is read by the computer as A. fib with AV block however the EKG has a large amount of baseline artifact as patient was anxious very tremulous. In leads with less artifact such as leads V5 and V6 you can see very discernible P waves with normal SD interval. Patient has what appears to be sinus rhythm with a rate of proximal 90 bpm. No obvious large ST segment elevation or depression. QRS duration is slightly prolonged. QTc interval is within normal range. She does have some T wave inversions in leads V1 through V3 which are unchanged comparison to old EKG from June 18, 2018. 06/12/19 20:14 06/12/19 20:15 Discharge - Discharge Clinical Impression: COPD exacerbation, Anxiety Condition: Good Disposition: HOME, SELF-CARE Additional Instructions: Please use your nebulizer as needed at home. Please have a low threshold to return to the ER if you have recurrent difficulty breathing, fevers, or feel unwell. Referrals: WILEY FRANKLIN MD [Primary Care Provider] - 06/16/19
[2019-06-12 20:36] LABS: VENOUS BLOOD HCO3 24.4 mmol/L (20-32); VENOUS BLOOD PCO2 43.2 mmHg (35-63); VENOUS BLOOD PH 7.37 (7.30-7.42)
[2019-06-12 20:38] LABS: ABSOLUTE EOSINOPHILS # (AUTO) 0.1 10^3/uL (0.0-0.6); ABSOLUTE MONOCYTES (AUTO) 0.7 10^3/uL (0.1-1.4); EOSINOPHILS % (AUTO) 1.2 % (0-6); TOTAL CELLS COUNTED % (AUTO) 100 %
[2019-06-12 20:40] LABS: ABSOLUTE NEUT (AUTO) 4.5 10^3/uL (1.7-8.2); BASOPHILS % (AUTO) 0.5 % (0-2); HEMATOCRIT 33.8 % (36.0-47.0); HEMOGLOBIN 11.2 g/dL (12.0-15.5); LYMPHOCYTES % (AUTO) 27.1 % (13-45); MEAN CORPUSCULAR HEMOGLOBIN 30.9 pg (27.0-33.4); MEAN CORPUSCULAR VOLUME 94 fl (80-97); MONOCYTES % (AUTO) 9.4 % (3-13); PLATELET COUNT 279 10^3/uL (150-450); RED BLOOD COUNT 3.61 10^6/uL (3.72-5.28); RED CELL DISTRIBUTION WIDTH 13.2 % (11.5-14.0); SEGMENTED NEUTROPHILS % (AUTO) 61.8 % (42-78); WHITE BLOOD COUNT 7.3 10^3/uL (4.0-10.5)
--- NOTE | 2019-06-12 20:47 | RADIOLOGY REPORT (SQ) ---
XR CHEST 1 VIEW EXAM DATE: 06/12/2019 8:05 PM CDT HISTORY: Dyspnea. COMPARISON: 06/18/2018 FINDINGS: The heart size is within normal limits. No consolidation, pleural effusion, or pneumothorax is seen. There is left lung base atelectasis. The bony thorax is intact. IMPRESSION: No evidence of acute cardiopulmonary disease.
[2019-06-12 20:50] LABS: ALBUMIN 4.1 g/dL (3.5-5.0); ALKALINE PHOSPHATASE 110 U/L (38-126); ANION GAP 9 (5-19); ASPARTATE AMINO TRANSFERASE 30 U/L (14-36); BILIRUBIN,DIRECT 0.4 mg/dL (0.0-0.4); BILIRUBIN,TOTAL 0.4 mg/dL (0.2-1.3); BLOOD UREA NITROGEN 14 mg/dL (7-20); CALCIUM 9.8 mg/dL (8.4-10.2); CARBON DIOXIDE 26 mmol/L (22-30); CHLORIDE 104 mmol/L (98-107); GLUCOSE 127 mg/dL (75-110); POTASSIUM 3.7 mmol/L (3.6-5.0); TOTAL PROTEIN 7.6 g/dL (6.3-8.2)
[2019-06-12] MEDS ORDERED: ALBUTEROL SULFATE 0.083% NEB 2.5 MG/3 ML AMPUL NEB ONE (20:52)
[2019-06-12 21:46] VITALS: BP 116/104
== END 2019-06-12 21:45 | disposition home or self-care (01) ==
LOC: ER 19:56
DX: J44.1 Chronic obstructive pulmonary disease with (acute) exacerbation (principal); F41.9 Anxiety disorder, unspecified; R06.02 Shortness of breath; F17.210 Nicotine dependence, cigarettes, uncomplicated; I25.10 Atherosclerotic heart disease of native coronary artery without angina pectoris; I10 Essential (primary) hypertension; E11.9 Type 2 diabetes mellitus without complications
CPT/HCPCS: 99285; 96374; 36415; 85025; 80053; 84484; 82803; 71045; J2060; A9270

== ENCOUNTER 2019-08-23 21:42 | Emergency (ER) | payer MEDICARE, MEDICAID ==
[2019-08-23] MEDS ORDERED: IPRATROPIUM/ALBUTEROL 0.5-2.5 MG/3 ML AMPUL NEB ONE (22:01)
[2019-08-23 22:13] LABS: ABSOLUTE EOSINOPHILS # (AUTO) 0.1 10^3/uL (0.0-0.6); ABSOLUTE LYMPHOCYTES (AUTO) 1.5 10^3/uL (0.5-4.7); ABSOLUTE MONOCYTES (AUTO) 0.9 10^3/uL (0.1-1.4); ABSOLUTE NEUT (AUTO) 6.3 10^3/uL (1.7-8.2); BASOPHILS % (AUTO) 0.4 % (0-2); EOSINOPHILS % (AUTO) 0.7 % (0-6); HEMATOCRIT 34.1 % (36.0-47.0); HEMOGLOBIN 11.3 g/dL (12.0-15.5); MEAN CORPUSCULAR HEMOGLOBIN 31.7 pg (27.0-33.4); MEAN CORPUSCULAR HGB CONC 33.1 g/dL (32.0-36.0); MEAN CORPUSCULAR VOLUME 96 fl (80-97); MONOCYTES % (AUTO) 10.1 % (3-13); PLATELET COUNT 264 10^3/uL (150-450); RED BLOOD COUNT 3.56 10^6/uL (3.72-5.28); RED CELL DISTRIBUTION WIDTH 13.3 % (11.5-14.0); SEGMENTED NEUTROPHILS % (AUTO) 71.8 % (42-78); TOTAL CELLS COUNTED % (AUTO) 100 %; WHITE BLOOD COUNT 8.8 10^3/uL (4.0-10.5)
[2019-08-23 22:41] LABS: ALBUMIN 4.3 g/dL (3.5-5.0); ALKALINE PHOSPHATASE 106 U/L (38-126); ANION GAP 10 (5-19); ASPARTATE AMINO TRANSFERASE 23 U/L (14-36); BILIRUBIN,DIRECT 0.3 mg/dL (0.0-0.4); BILIRUBIN,TOTAL 0.5 mg/dL (0.2-1.3); BLOOD UREA NITROGEN 12 mg/dL (7-20); CALCIUM 9.6 mg/dL (8.4-10.2); CARBON DIOXIDE 25 mmol/L (22-30); CHLORIDE 104 mmol/L (98-107); GLUCOSE 137 mg/dL (75-110); POTASSIUM 3.7 mmol/L (3.6-5.0); TOTAL PROTEIN 7.3 g/dL (6.3-8.2)
--- NOTE | 2019-08-23 23:06 | RADIOLOGY REPORT (SQ) ---
EXAM DESCRIPTION: XR CHEST 2 VIEWS COMPLETED DATE/TME: 08/23/2019 22:02 CLINICAL HISTORY: 79 years, Female, SOB COMPARISON: 06/12/2019 chest NUMBER OF VIEWS: 2 TECHNIQUE: 2 views of the chest LIMITATIONS: None. FINDINGS: The heart size is normal. Atheromatous change of the thoracic aorta. Underlying emphysema. Moderate-sized hiatal hernia. Superimposed small left pleural effusion and retrocardiac airspace opacity. No pneumothorax. Accentuation of the normal thoracic kyphosis. Grossly stable compression fracture deformities of the thoracic and upper lumbar spines. IMPRESSION: Osteopenia. Emphysema. Moderate-sized hiatal hernia. Small left pleural effusion. Retrocardiac airspace opacity. copyright 2010 [employer]- All Rights Reserved
[2019-08-24] MEDS ORDERED: NORMAL SALINE 1000 ML 1,000 ML IV ONE (00:11)
[2019-08-24] MEDS ORDERED: CEFTRIAXONE 1 GM/D5W RTU 1 GM/50 ML RTUPB IV ONE (00:19)
[2019-08-24] MEDS ORDERED: AZITHROMYCIN INJ 500 MG VIAL IV ONE (00:19)
[2019-08-24] MEDS ORDERED: ALBUTEROL SULFATE 0.083% NEB 2.5 MG/3 ML AMPUL NEB ONE (00:20)
[2019-08-24] MEDS: MAGNESIUM SULFATE/D5W 1 GM/100 ML RTUPB IV SCH ×2 (00:49→01:51)
--- NOTE | 2019-08-24 01:15 | EKG REPORT ---
SEVERITY:- ABNORMAL ECG - JUNCTIONAL TACHYCARDIA RBBB AND LPFB : Confirmed by: Lizy Lovett MD 24-Aug-2019 01:14:03
--- NOTE | 2019-08-24 03:19 | ER Document Report ---
ED Respiratory Problem - General Chief Complaint: Shortness Of Breath Stated Complaint: RESPIRATORY DISTRESS Time Seen by Provider: 08/23/19 21:59 Notes: Patient is a 79-year-old female presents to the emergency department for generalized cough congestion and increase in respiratory distress. Patient voices she does have a history of COPD and is typically on oxygen 2 L/min all the time. States she has taken a total of 6 albuterol treatments in the last 48 hours. Patient says she does continue to smoke cigarettes. Patient's denying any chest pain. States she overall feels slightly better after initial DuoNeb treatment and 125 mg of Solu-Medrol via EMS. Patient voices that her is actually admitted at this hospital for a pneu monia. TRAVEL OUTSIDE OF THE [place] IN LAST 30 DAYS: No - Related Data Allergies/Adverse Reactions: ciprofloxacin [From Cipro] Allergy (Intermediate, Verified 05/30/18 19:06) Hives nitroglycerin [From Nitrostat IV] Allergy (Verified 05/30/18 19:06) Penicillins Allergy (Verified 05/30/18 19:06) promethazine HCl [From Phenergan] Allergy (Verified 05/30/18 19:06) Home Medications: Metformin, Lovastatin, Topiramate, Amitriptyline Past Medical History - General Information source: Patient - Social History Smoking Status: Current Every Day Smoker Family History: Reviewed & Not Pertinent Patient has suicidal ideation: No Patient has homicidal ideation: No - Past Medical History Cardiac Medical History: Reports: Hx Coronary Artery Disease, Hx Heart Attack, Hx Hypercholesterolemia, Hx Hypertension, Hx Peripheral Vascular Disease Pulmonary Medical History: Reports: Hx Asthma, Hx Bronchitis, Hx COPD, Hx Respiratory Failure Neurological Medical History: Reports: Hx Cerebrovascular Accident - x3, Hx Seizures Endocrine Medical History: Reports: Hx Diabetes Mellitus Type 2 Renal/ Medical History: Denies: Hx Peritoneal Dialysis GI Medical History: Denies: Hx Hepatitis, Hx Hiatal Hernia, Hx Ulcer Musculoskeletal Medical History: Denies Hx Arthritis Skin Medical History: Denies Hx Eczema, Denies Hx Psoriasis Psychiatric Medical History: Denies: Hx Depression Infectious Medical History: Denies: Hx Hepatitis Past Surgical History: Reports: Hx Cardiac Catheterization - x3, Hx Cholecystectomy, Hx Hysterectomy, Hx Kidney (Renal Surgery) - Bladder lift. Denies: Hx Mastectomy, Hx Open Heart Surgery, Hx Pacemaker - Immunizations Hx Diphtheria, Pertussis, Tetanus Vaccination: Yes Hx Pneumococcal Vaccination: 10/08/08 Review of Systems - Review of Systems Constitutional: denies: Fever EENT: See HPI Cardiovascular: See HPI Respiratory: See HPI Gastrointestinal: No symptoms reported Genitourinary: No symptoms reported Female Genitourinary: No symptoms reported Musculoskeletal: No symptoms reported Skin: No symptoms reported Hematologic/Lymphatic: No symptoms reported Neurological/Psychological: No symptoms reported Physical Exam - Vital signs Vitals: Temp Pulse Ox 98 F 97 08/23/19 21:45 08/23/19 21:45 - Notes Notes: GENERAL: Alert, interacts well. No acute distress. HEAD: Normocephalic, atraumatic. EYES: Pupils equal, round, and reactive to light. Extraocular movements intact. ENT: Oral mucosa moist, tongue midline. NECK: Full range of motion. Supple. Trachea midline. LUNGS: Expiratory wheeze to auscultation bilaterally, no discernible rales, or rhonchi. No respiratory distress. HEART: Tachycardic rate and rhythm. No murmur ABDOMEN: Soft, non-tender. Non-distended. Bowel sounds present in all 4 quadr ants. EXTREMITIES: Moves all 4 extremities spontaneously. No edema, normal radial and dorsalis pedis pulses bilaterally. No cyanosis. BACK: no cervical, thoracic, lumbar midline tenderness. No saddle anesthesia, normal distal neurovascular exam. NEUROLOGICAL: Alert and oriented x3. Normal speech. cranial nerves II through XII grossly intact PSYCH: Normal affect, normal mood. SKIN: Warm, dry, normal turgor. No rashes or lesions noted. Course - Re-evaluation Re-evalutation: Patient is a 79-year-old female presents to the emergency department for respiratory distress. Extensive COPD history. Initially was treated with DuoNe b treatments and fluids. Patient voices she did feel better at that time. Awaiting lab results and chest x-ray. After chest x-ray was resulted I discussed with patient at length diagnosis of potential pneumonia. Patient voices she now feels short of breath again. Reassessment of patient's lungs shows end expiratory wheeze heard bilateral bases, slight rhonchi bilateral bases, cleared with a cough. At this time I have ordered IV antibiotics to cover for an community-acquired pneumonia, magnesium and another albuterol treatment. I discussed with patient possible admission to the hospital for continued evaluation. Patient voices she does not want to be admitted to the hospital. CURB-65 is only 1 based on age. pt. is not tachypneic, confused, hypotensive. Patient does not meet curb 65 criteria for admission. She is not tachypneic any longer. Voices she overall feels "so much better." I discussed with her at length the need for close follow-up with primary care provider as well as using albuterol every 4 hours for the next 3 days. I have also discussed close return precautions. Patient hemodynamically stable for discharge. - Vital Signs Vital signs: Temp Pulse Resp BP Pulse Ox 98.1 F 17 118/55 L 96 08/24/19 00:52 08/24/19 03:01 08/24/19 03:01 08/24/19 03:01 - Laboratory Result Diagrams: 08/23/19 21:55 08/23/19 21:55 Laboratory results interpreted by me: 08/23/19 08/23/19 21:55 21:55 RBC 3.56 L Hgb 11.3 L Hct 34.1 L Glucose 137 H Discharge - Discharge Clinical Impression: COPD exacerbation Pneumonia Qualifiers: Pneumonia type: due to unspecified organism Laterality: unspecified laterality Lung location: unspecified part of lung Qualified Code(s): J18.9 - Pneumonia, unspecified organism Condition: Stable Disposition: HOME, SELF-CARE Instructions: Chronic Obstructive Lung Disease ([facility]), Pneumonia ([facility]) Additional Instructions: As we discussed you have been seen and treated in the emergency department for a COPD exacerbation and pneumonia. Please make sure you are using your albuterol treatments every 4 hours for the next 3 days. Please also make sure you are taking antibiotics and steroids as prescribed. Please follow-up with your primary care provider in the next 12 hours. Immediately return to the emergency department for any concerns to include respiratory distress. Prescriptions: Prednisone [Deltasone 20 mg Tablet] 3 tab PO DAILY 5 Days tablet Doxycycline Hyclate 100 mg PO BID #14 capsule
[2019-08-24] MEDS ORDERED: IPRATROPIUM/ALBUTEROL 0.5-2.5 MG/3 ML AMPUL NEB ONE (10:13)
[2019-08-24 10:27] VITALS: BP 129/67
== END 2019-08-24 10:25 | disposition home or self-care (01) ==
LOC: ER 21:42
DX: J44.1 Chronic obstructive pulmonary disease with (acute) exacerbation (principal); J18.9 Pneumonia, unspecified organism; R06.02 Shortness of breath; R05 Cough; R09.81 Nasal congestion; R06.03 Acute respiratory distress; Z99.81 Dependence on supplemental oxygen; F17.210 Nicotine dependence, cigarettes, uncomplicated; Z79.84 Long term (current) use of oral hypoglycemic drugs; Z79.899 Other long term (current) drug therapy; I25.10 Atherosclerotic heart disease of native coronary artery without angina pectoris; I25.2 Old myocardial infarction; I10 Essential (primary) hypertension; E11.9 Type 2 diabetes mellitus without complications
CPT/HCPCS: 93005; 36415; 87040; 85025; 80053; 84484; 71046; 93010; J3475; J7030; J0456; J0696; A9270 ×3; 94640; 96365; 96367; 99285; J7620